=== PATIENT | female | born 1970 | race Caucasian/White ===

== ENCOUNTER 2017-12-06 13:20 | Inpatient (IN) | payer SELFPAY ==
[2017-12-06] VITALS (10 sets, daily range): BP systolic 154–202; BP diastolic 101–134; PULSE 70–104; RESP 16–18; TEMP 36.5–36.7; O2SAT 96–100; BMI 44.1; BMI 44.2
--- NOTE | 2017-12-06 14:02 | ECHOD_ITS ---
Reason For Study: CHF Procedure This was a 2D Doppler, Color Flow transthoracic echocardiogram. The study was technically difficult. Due to body habitus and severe headache. Exam performed portable in patient room. Dr. Schroeder was notified @ 3:35 pm. Left Ventricle Normal LV size. Moderate concentric left ventricular hypertrophy. The estimated ejection fraction is 15 %. Severe global left ventricular systolic dysfunction. Transmitral diastolic flow velocities suggest severe (stage 3) diastolic dysfunction. There is severe global hypokinesis of the left ventricle. Right Ventricle Normal RV size. Normal systolic function. Atria The left atrium is moderately enlarged. Normal right atrium. Mitral Valve Normal mitral valve. Tricuspid Valve Normal tricuspid valve. Moderate (2+) tricuspid valve insufficiency. Pulmonary artery systolic pressure is 56 mmHg. Moderate pulmonary hypertension. Aortic Valve Normal aortic valve. Trisinus/trileaflet aortic valve. Pulmonic Valve Normal pulmonic valve. Mild (1+) pulmonic valve insufficiency. Great Vessels Normal aortic root. The pulmonary artery is normal size. The inferior vena cava is dilated. Pericardium/Pleural No pericardial effusion. MMode/2D Measurements & Calculations LVIDd: 5.2 cm IVSd: 1.4 cm Ao root diam: 2.8 cm LVIDs: 4.8 cm LVPWd: 1.3 cm LA dimension: 5.0 cm RVDd: 3.3 cm FS: 8.5 % LAV(MOD-bp): 95.8 ml LA A4 area: 29.7 cm2 RA A4 area: 18.5 cm2 LAV(MOD-bp) Indexed: 46.3 ml/m2 LAV(MOD-sp2): 75.2 ml LAV(MOD-sp4): 111.1 ml Doppler Measurements & Calculations MV E max victoriano: 93.8 cm/sec Lat Peak E' Victoriano: 7.4 cm/sec Med Peak E' Victoriano: 2.6 cm/sec MV A max victoriano: 36.7 cm/sec E/E' lat: 12.7 E/E' med: 36.3 MV E/A: 2.6 Ao V2 max: 112.7 cm/sec LV V1 max: 78.9 cm/sec PA V2 max: 73.8 cm/sec Ao max P.1 mmHg LV V1 max P.5 mmHg TR max victoriano: 367.0 cm/sec TR max P.7 mmHg Interpretation Summary Normal LV size. Moderate concentric left ventricular hypertrophy. The estimated ejection fraction is 15 %. Severe global left ventricular systolic dysfunction. Transmitral diastolic flow velocities suggest severe (stage 3) diastolic dysfunction Moderate pulmonary hypertension. Ordering Physician: Eva Queen Performed By: Dilia Winters, ARELIS, RVT
--- NOTE | 2017-12-06 14:09 | PCM.HP.STD ---
Problem List (1) CHF (congestive heart failure) Status: Acute (2) Hypertension Status: Chronic History of Present Illness Date of Admission: 12/06/17 Chief Complaint: Shortness of breath and leg edema The patient is a 47 year old F who presented to the emergency room at [place] with progressive shortness of breath and leg swelling for 1 week. The patient has history of congestive heart failure diagnosed about 2 years ago but she does not follow up with any physician, he was supposed to be on Lasix but does not take this medication. In the emergency room the patient was noted to be saturating well above 97% on room air, her d-dimer was elevated and a CT angiogram of the chest was obtained that was negative for pulmonary embolism but revealed 9 mm millimeters solid right upper lobe lung nodule, bilateral mediastinal hilar and hilar adenopathy as well as small right pleural effusion and cardiomegaly. The patient was transferred to [facility] for further management. The patient reports no chest pain, palpitations or rapid heartbeat. Past Medical History Past Medical History (Chronic Problems): Chronic Problems Hypertension (Chronic) Smoking Status: Never smoker VTE Information - Inpt Only VTE Present on Admission: No VTE Pharm Prophylaxis ordered?: Yes Patient Problems: Active and Suspected Problems CHF (congestive heart failure) (Acute) - Physical Exam General: Alert, Oriented x3 HEENT: Atraumatic Oral: Moist Mucosa Neck: Supple Lungs: Clear to auscultation Cardiovascular: Regular rate, Normal S1, Normal S2 Abdomen: Bowel Sounds Present, Soft, Non Tender Extremities: Edema Neurological: Cranial nerves II-XII grossly intact, Motor Exam 5/5 strength throughout Psych/Mental Status: Normal Affect Vital Signs Temp Pulse Resp BP Pulse Ox 98.1 F 99 16 173/127 H 100 12/06/17 13:20 12/06/17 13:31 12/06/17 13:20 12/06/17 13:20 12/06/17 13:20 Oxygen Delivery Method Room Air Weight: 109.6 kg Body Mass Index (BMI) 44.1 Assessment/Plan Active and Suspected Problems CHF (congestive heart failure) (Acute) 1. Acute on chronic congestive heart failure ; given her ascites she could have right heart failure , we will obtain echocardiogram with left ventricular function as well as RVSP. She will be started on IV Lasix. [employer] Specialist will be consulted. 2. Essential Hypertension; we will place her on lisinopril and hydrochlorothiazide for now, when she is adequately diuresed she can be started on a beta-landy. 3. 9 mm solid right upper lung nodule, bilateral mediastinal and hilar adenopathy; we will consult pulmonary medicine. 4. Obesity weight loss recommended. 5. Ascites, Mild ; may be due to right heart failure, will continue on diuresis, workup as in #1 above. 6. Prophylaxis with Lovenox. Code Visit Inpatient E&M: 32862 Init Hosp L3
--- NOTE | 2017-12-06 14:42 | PCM.CONS.GEN ---
Reason for Consult Date of Consultation: 12/06/17 Reason for Consultation: Right upper lung nodule History of Present Illness: The patient is a 47 year old F with a past medical history of uncontrolled hypertension, arthritis, borderline diabetes, and anxiety/depression who presented to the ED as a direct admit from [facility] for increased shortness of breath and lower extremity edema with suspected CHF exacerbation. Patient reports she has been progressively short of breath over the last 1-2 weeks with increase in lower extremity edema despite elevation of her legs. She also complains of abdominal distention over the last couple of days. Patient reports she was diagnosed with CHF a few years ago at [facility], she was not admitted at that time but discharged with a couple of medications. She did fill these medications, however never really took any of them. She never followed up with cardiology as instructed. Patient reports her suddenly 4 years ago of a heart attack and she fell apart after that, she has been drinking daily for the last couple of years. She does smoke intermittently, 1-2 cigarettes once a month. The patient recently got evicted from her home and is currently living with her son and roommate. Chest CT obtained at [facility] secondary to elevated d-dimer, it was negative for PE but showed a solid-appearing 9 mm right upper lobe nodule, 3 mm right middle lobe nodule, and several right lower lobe nodules anteriorly. There was a small right pleural effusion with mild adjacent compressive atelectasis. Left lung was clear. There is also a number of mildly enlarged mediastinal and hilar lymph nodes bilaterally. Mild cardiomegaly. There was reflux of contrast into the IVC, possible right ventricular dysfunction. Also a small pericardial effusion. There is also an incidental finding of at least a small volume of ascites to the upper abdomen. EKG showed normal sinus rhythm with no evidence of ischemia. Blood pressures at [facility] were consistently elevated, as high as 228/146. Patient reports this is typical for her. She has never exhibited any hypoxia. She was treated with nitroglycerin paste, 20 mg IV Lasix, full dose aspirin, and IV labetalol without much improvement in her blood pressure. Initial troponin was 0.31. Pro BNP was 9080. White count was normal as well as hemoglobin. Platelet count 43. Rapid influenza negative. Patient transferred to [facility] for further evaluation and management. Pulmonology and cardiology have been consulted. Patient denies any previous abnormal imaging. She seems to be somewhat of a poor historian and downplays her symptoms. She denies any previous home oxygen use, hospitalizations, inhalers, or steroids. She denies any history of lung disease. Patient denies unexplained weight loss, hemoptysis, nocturia, or significant orthopnea. She does have a productive cough of martin/brown sputum for the last couple of weeks. No recent sick contacts. She denies any fever or chills, sore throat, no nausea, vomiting, or diarrhea. Denies any dizziness, syncope, or chest discomfort. She does cough with deep inspiration. States she has allergies as she sneezes when she is around animals. Patient admits she does not take care of herself and having significantly high blood pressures is very common for her. She has a headache. She drinks approximately a 12 pack of beer almost daily. Her last drink was 2 days ago. 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 Denies: Difficulty Swallowing, Head Aches, Nasal bleeding, Nasal Congestion, Sinus Congestion, Sinus Drainage, Sore Throat Cardiovascular: Reports: Edema, Orthopnea - if lies on back. sleeps w/2 pillows on side. Denies: Chest Pain, Chest Pressure, Chest Tightness, Heaviness, Light Headedness, Palpitations, Paroxysmal Noc. Dyspnea, Syncope Respiratory: Reports: Cough, Shortness of breath upon exertion, Sputum production. Denies: Hemoptysis, Shortness of breath at rest, Wheezing Gastrointestinal: Reports: - - bloated. Denies: Abdominal Pain, Constipation, Diarrhea, Dyspepsia, Hematemesis, Hematochezia, Nausea, Melena, Vomiting Genitourinary: Reports: Frequency - with diuretic. Denies: Dysuria, Hematuria, Nocturia, Retention Gynecological: Denies: Breast symptoms Musculoskeletal: Denies: Neck Pain, Shoulder Pain Skin: Denies: Rash, Wounds Neurological: Reports: Difficulty swallowing - just pills. Denies: Balance problems, Change in Speech, Confusion, Focal weakness, Numbness, Tingling, Tremor Psychiatric: Reports: Anxiety, Depression. Denies: Suicidal Ideations Endocrine: Denies: Change in Body Habitus, Polydipsia, Polyuria, Hx of Thyroiditis Hematologic/ Lymphatic: Denies: Adenopathy, Anemia, Easy Bruising, Easy Bleeding, Hx of blood clot Patient Problems: Active and Suspected Problems CHF (congestive heart failure) (Acute) Subjective: Patient was seen and examined. She is not in any acute distress. She denies any current shortness of breath, except with exertion. She is maintaining appropriate saturations on room air. She is asking for something to eat. Objective: [facility] testing: CT chest negative for PE but showed a solid-appearing 9 mm right upper lobe nodule, 3 mm right middle lobe nodule, and several right lower lobe nodules anteriorly. There was a small right pleural effusion with mild adjacent compressive atelectasis. Left lung was clear. There is also a number of mildly enlarged mediastinal and hilar lymph nodes bilaterally. Mild cardiomegaly. There was reflux of contrast into the IVC, possible right ventricular dysfunction. Also a small pericardial effusion. There is also an incidental finding of at least a small volume of ascites to the upper abdomen. EKG showed normal sinus rhythm with no evidence of ischemia. Rapid influenza negative. - Physical Exam General: Alert, Oriented x3, Cooperative, No apparent distress, Well developed, Well nourished, - - obese HEENT: Atraumatic Oral: Moist Mucosa, No Gingival or Mucosal Lesions/ Ulcerations Neck: Supple, No Nodes, Trachea Midline Lungs: - - Diminished throughout with no appreciable rhonchi, wheezing, or rales. No accessory muscle use or tachypnea. Symmetrical expansion, no dullness to percussion Cardiovascular: Regular rate, Regular Rhythm, Normal S1, Normal S2, No murmurs, No rub noted, No Gallop Abdomen: Bowel Sounds Present, Soft, Non Tender, Non-Distended, No Hepato-splenomegaly, Obese Extremities: No clubbing, No cyanosis, No Calf Tenderness, Edema Skin: No rashes, No breakdown Musculoskeletal: No Tenderness to Palpation of Joints or Extremities Lymphatic: No Cervical, Supraclavicular, or Inguinal Adenopathy Neurological: Cranial nerves II-XII grossly intact, Neuro grossly intact, Motor Exam 5/5 strength throughout Psych/Mental Status: Alert and oriented to time, place, person, mood and affect Vital Signs Temp Pulse Resp BP Pulse Ox 98.1 F 99 16 173/127 H 100 12/06/17 13:20 12/06/17 13:31 12/06/17 13:20 12/06/17 13:20 12/06/17 13:20 Oxygen Delivery Method Room Air Weight: 241 lb 10.026 oz Body Mass Index (BMI) 44.1 Assessment/Plan Active and Suspected Problems CHF (congestive heart failure) (Acute) RECOMMENDATIONS 1. Oxygen supplementation to keep saturations 90% or above 2. Encourage incentive spirometer 3. Increase activity as tolerated, up to chair 4. As needed albuterol aerosols 5. Await echocardiogram 6. Continue with IV diuresis 7. Consider addition of second antihypertensive agent 8. Routine CIWA assessment 9. Ambulatory pulse ox prior to discharge 10. Follow-up CT in 3 months for lung nodules, follow-up in the pulmonary clinic for results 11. Case management referral for assistance with medications/healthcare IMPRESSIONS 1. Right-mid lung nodules No prior imaging. Right upper lobe nodules 9 mm, right middle lobe 3 mm, several smaller in the right anterior lower lobe. Also bilateral mediastinal and hilar adenopathy. No indication for bronchoscopy at this time. Patient can follow-up in the pulmonary clinic, should have repeat CT in 3 months to reassess lung nodules. Patient does have some risk factors that would be concerning for malignancy, has smoked off and on over the past couple of years. She does not routinely follow up with the physician. Not up-to-date on screenings such as mammogram. No family history of colon or breast cancer. 2. Shortness of breath Suspect CHF exacerbation, possibly secondary to ischemia or uncontrolled hypertension. No chest pain. Initial troponin at [facility] was 0.30. No prior echocardiograms to her knowledge, states that if she had one done it would have been at [facility]. Patient was diagnosed with CHF a couple of years ago in the ER, was given prescriptions and told to follow-up with cardiology, which she failed to do. States she has not cared much about her health since her 4 years ago. She is unemployed and does not have insurance, which is also contributing factor. Await serial cardiac enzymes and echocardiogram. 3. Uncontrolled hypertension Patient's blood pressure consistently and significantly elevated systolic in the 170s-220s and diastolic 90-150s. Noncompliant with prescription secondary to depression and financial issues. She recently got evicted from her home and has been bouncing from house to house with family and friends. 4. Anxiety/depression/morbid obesity/alcohol abuse/tobacco abuse Complicates care, management, recovery, and prognosis. Lisinopril started by hospitalist, would consider additional agent with significant hypertension. Hopefully, with diuresis her blood pressure will also improve. As needed IV labetalol was ordered. Encouraged smoking cessation. Monitor for alcohol withdrawal, CIWA ordered. Patient denies any previous withdrawal when she goes without alcohol. Thank you for the opportunity to participate in this patient's care, please do not hesitate contact us with any further questions or concerns. This note was generated with eeden dictation software. It may contain incorrect words, spelling, and punctuation that were not noted in checking the note before signing.
--- NOTE | 2017-12-06 14:53 | CON.PCM_ITS ---
Reason for Consult Date of Consultation: 12/06/17 Reason for Consultation: Right upper lung nodule History of Present Illness: The patient is a 47 year old F with a past medical history of uncontrolled hypertension, arthritis, borderline diabetes, and anxiety/depression who presented to the ED as a direct admit from [facility] for increased shortness of breath and lower extremity edema with suspected CHF exacerbation. Patient reports she has been progressively short of breath over the last 1-2 weeks with increase in lower extremity edema despite elevation of her legs. She also complains of abdominal distention over the last couple of days. Patient reports she was diagnosed with CHF a few years ago at [facility], she was not admitted at that time but discharged with a couple of medications. She did fill these medications, however never really took any of them. She never followed up with cardiology as instructed. Patient reports her suddenly 4 years ago of a heart attack and she fell apart after that, she has been drinking daily for the last couple of years. She does smoke intermittently, 1-2 cigarettes once a month. The patient recently got evicted from her home and is currently living with her son and roommate. Chest CT obtained at [facility] secondary to elevated d-dimer, it was negative for PE but showed a solid-appearing 9 mm right upper lobe nodule, 3 mm right middle lobe nodule, and several right lower lobe nodules anteriorly. There was a small right pleural effusion with mild adjacent compressive atelectasis. Left lung was clear. There is also a number of mildly enlarged mediastinal and hilar lymph nodes bilaterally. Mild cardiomegaly. There was reflux of contrast into the IVC, possible right ventricular dysfunction. Also a small pericardial effusion. There is also an incidental finding of at least a small volume of ascites to the upper abdomen. EKG showed normal sinus rhythm with no evidence of ischemia. Blood pressures at [facility] were consistently elevated, as high as 228/146. Patient reports this is typical for her. She has never exhibited any hypoxia. She was treated with nitroglycerin paste, 20 mg IV Lasix , full dose aspirin, and IV labetalol without much improvement in her blood pressure. Initial troponin was 0.31. Pro BNP was 9080. White count was normal as well as hemoglobin. Platelet count 43. Rapid influenza negative. Patient transferred to [facility] for further evaluation and management. Pulmonology and cardiology have been consulted. Patient denies any previous abnormal imaging. She seems to be somewhat of a poor historian and downplays her symptoms. She denies any previous home oxygen use, hospitalizations, inhalers, or steroids. She denies any history of lung disease. Patient denies unexplained weight loss, hemoptysis, nocturia, or significant orthopnea. She does have a productive cough of martin/brown sputum for the last couple of weeks. No recent sick contacts. She denies any fever or chills, sore throat, no nausea, vomiting, or diarrhea. Denies any dizziness , syncope, or chest discomfort. She does cough with deep inspiration. States she has allergies as she sneezes when she is around animals. Patient admits she does not take care of herself and having significantly high blood pressures is very common for her. She has a headache. She drinks approximately a 12 pack of beer almost daily. Her last drink was 2 days ago. 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 Denies: Difficulty Swallowing, Head Aches, Nasal bleeding, Nasal Congestion, Sinus Congestion, Sinus Drainage, Sore Throat Cardiovascular: Reports: Edema, Orthopnea - if lies on back. sleeps w/2 pillows on side. Denies: Chest Pain, Chest Pressure, Chest Tightness, Heaviness, Light Headedness, Palpitations, Paroxysmal Noc. Dyspnea, Syncope Respiratory: Reports: Cough, Shortness of breath upon exertion, Sputum production. Denies: Hemoptysis, Shortness of breath at rest, Wheezing Gastrointestinal: Reports: - - bloated. Denies: Abdominal Pain, Constipation , Diarrhea, Dyspepsia, Hematemesis, Hematochezia, Nausea, Melena, Vomiting Genitourinary: Reports: Frequency - with diuretic. Denies: Dysuria, Hematuria, Nocturia, Retention Gynecological: Denies: Breast symptoms Musculoskeletal: Denies: Neck Pain, Shoulder Pain Skin: Denies: Rash, Wounds Neurological: Reports: Difficulty swallowing - just pills. Denies: Balance problems, Change in Speech, Confusion, Focal weakness, Numbness, Tingling, Tremor Psychiatric: Reports: Anxiety, Depression. Denies: Suicidal Ideations Endocrine: Denies: Change in Body Habitus, Polydipsia, Polyuria, Hx of Thyroiditis Hematologic/ Lymphatic: Denies: Adenopathy, Anemia, Easy Bruising, Easy Bleeding , Hx of blood clot Patient Problems: Active and Suspected Problems CHF (congestive heart failure) (Acute) Subjective: Patient was seen and examined. She is not in any acute distress. She denies any current shortness of breath, except with exertion. She is maintaining appropriate saturations on room air. She is asking for something to eat. Objective: [facility] testing: CT chest negative for PE but showed a solid-appearing 9 mm right upper lobe nodule, 3 mm right middle lobe nodule, and several right lower lobe nodules anteriorly. There was a small right pleural effusion with mild adjacent compressive atelectasis. Left lung was clear. There is also a number of mildly enlarged mediastinal and hilar lymph nodes bilaterally. Mild cardiomegaly. There was reflux of contrast into the IVC, possible right ventricular dysfunction. Also a small pericardial effusion. There is also an incidental finding of at least a small volume of ascites to the upper abdomen. EKG showed normal sinus rhythm with no evidence of ischemia. Rapid influenza negative. - Physical Exam General: Alert, Oriented x3, Cooperative, No apparent distress, Well developed, Well nourished, - - obese HEENT: Atraumatic Oral: Moist Mucosa, No Gingival or Mucosal Lesions/ Ulcerations Neck: Supple, No Nodes, Trachea Midline Lungs: - - Diminished throughout with no appreciable rhonchi, wheezing, or rales. No accessory muscle use or tachypnea. Symmetrical expansion, no dullness to percussion Cardiovascular: Regular rate, Regular Rhythm, Normal S1, Normal S2, No murmurs, No rub noted, No Gallop Abdomen: Bowel Sounds Present, Soft, Non Tender, Non-Distended, No Hepato- splenomegaly, Obese Extremities: No clubbing, No cyanosis, No Calf Tenderness, Edema Skin: No rashes, No breakdown Musculoskeletal: No Tenderness to Palpation of Joints or Extremities Lymphatic: No Cervical, Supraclavicular, or Inguinal Adenopathy Neurological: Cranial nerves II-XII grossly intact, Neuro grossly intact, Motor Exam 5/5 strength throughout Psych/Mental Status: Alert and oriented to time, place, person, mood and affect Vital Signs Temp Pulse Resp BP Pulse Ox 98.1 F 99 16 173/127 H 100 12/06/17 13:20 12/06/17 13:31 12/06/17 13:20 12/06/17 13:20 12/06/17 13:20 Oxygen Delivery Method Room Air Weight: 241 lb 10.026 oz Body Mass Index (BMI) 44.1 Assessment/Plan Active and Suspected Problems CHF (congestive heart failure) (Acute) RECOMMENDATIONS 1. Oxygen supplementation to keep saturations 90% or above 2. Encourage incentive spirometer 3. Increase activity as tolerated, up to chair 4. As needed albuterol aerosols 5. Await echocardiogram 6. Continue with IV diuresis 7. Consider addition of second antihypertensive agent 8. Routine CIWA assessment 9. Ambulatory pulse ox prior to discharge 10. Follow-up CT in 3 months for lung nodules, follow-up in the pulmonary clinic for results 11. Case management referral for assistance with medications/healthcare IMPRESSIONS 1. Right-mid lung nodules No prior imaging. Right upper lobe nodules 9 mm, right middle lobe 3 mm, several smaller in the right anterior lower lobe. Also bilateral mediastinal and hilar adenopathy. No indication for bronchoscopy at this time. Patient can follow-up in the pulmonary clinic, should have repeat CT in 3 months to reassess lung nodules. Patient does have some risk factors that would be concerning for malignancy, has smoked off and on over the past couple of years. She does not routinely follow up with the physician. Not up-to-date on screenings such as mammogram. No family history of colon or breast cancer. 2. Shortness of breath Suspect CHF exacerbation, possibly secondary to ischemia or uncontrolled hypertension. No chest pain. Initial troponin at [facility] was 0.30. No prior echocardiograms to her knowledge, states that if she had one done it would have been at [facility]. Patient was diagnosed with CHF a couple of years ago in the ER, was given prescriptions and told to follow-up with cardiology, which she failed to do. States she has not cared much about her health since her 4 years ago. She is unemployed and does not have insurance, which is also contributing factor. Await serial cardiac enzymes and echocardiogram. 3. Uncontrolled hypertension Patient's blood pressure consistently and significantly elevated systolic in the 170s-220s and diastolic 90-150s. Noncompliant with prescription secondary to depression and financial issues. She recently got evicted from her home and has been bouncing from house to house with family and friends. 4. Anxiety/depression/morbid obesity/alcohol abuse/tobacco abuse Complicates care, management, recovery, and prognosis. Lisinopril started by hospitalist, would consider additional agent with significant hypertension. Hopefully, with diuresis her blood pressure will also improve. As needed IV labetalol was ordered. Encouraged smoking cessation. Monitor for alcohol withdrawal, CIWA ordered. Patient denies any previous withdrawal when she goes without alcohol. Thank you for the opportunity to participate in this patient's care, please do not hesitate contact us with any further questions or concerns. This note was generated with [employer] dictation software. It may contain incorrect words, spelling, and punctuation that were not noted in checking the note before signing.
[2017-12-06 15:35] LABS: Bedside Glucose 118 mg/dL (70-110)
[2017-12-06 15:45] LABS: Thyroid Stim Hormone (TSH) 2.69 uIU/mL (0.358-3.74)
[2017-12-06] MEDS: Labetalol 100 MG/20 ML Vial 20 MG IV (17:08)
[2017-12-06] MEDS: Carvedilol 12.5 MG Tablet PO (20:04)
[2017-12-06] MEDS: Furosemide 40 MG/4 ML Vial IV (21:24)
[2017-12-07] VITALS (12 sets, daily range): BP systolic 120–166; BP diastolic 74–106; PULSE 65–151; RESP 18; TEMP 36.5–36.9; O2SAT 96–100
[2017-12-07] MEDS: Labetalol 100 MG/20 ML Vial 20 MG IV (02:41)
[2017-12-07 04:58] LABS: Absolute Lymphocyte Count 1.08 X10^3/ul (0.83-4.51); Absolute Neutrophil Count 3.2 X10^3/uL (2.0-7.7); Basophil# 0.02 X10^3/uL; Basophil% 0.4 % (0-1); Eosinophil# 0.14 X10^3/uL; Eosinophils% 2.8 % (0-5); Hematocrit 36.5 % (37-47); Hemoglobin 11.1 g/dl (12.0-15.0); Lymphocyte # 1.08 X10^3/ul (4.0); Lymphocyte % 21.9 % (19-41); Mean Corp Hgb Conc 30.4 g/gl (32-36); Mean Corpuscular Hgb 23.6 pg (27.0-32.0); Mean Corpuscular Volume 77.5 fL (81-99); Mean Platelet Vol. 9.3 fl (6.2-12.0); Monocyte# 0.48 X10^3/uL; Monocyte% 9.7 % (0-10); Platelet Count 410 K/mm3 (150-450); RBC Distribution Width SD 47.1 fl (35.1-43.9); Red Blood Count 4.71 M/mm3 (4.2-5.4); White Blood Count 4.9 K/mm3 (4.4-11.0)
[2017-12-07 04:59] LABS: POSITIVE COUNT NO; POSITIVE DIFFERENTIAL NO; POSITIVE MORPHOLOGY NO
[2017-12-07 05:09] LABS: Anion Gap 8 (5-15); BUN 12 mg/dL (7-18); BUN/Creat Ratio 12.5 RATIO (10-20); Chloride 99 mmol/L (98-107); Creatinine, Serum 0.96 mg/dL (0.55-1.02); EST Glomerular Filtration Rate 66 mL/min (>60); Est Glom Filt Rate - Afr Amer 80 mL/min (>60); Glucose 124 mg/dL (74-106); Potassium 4.2 mmol/L (3.5-5.1); Sodium Level 135 mmol/L (136-145)
[2017-12-07] MEDS: Furosemide 40 MG/4 ML Vial IV ×3 (05:26→22:25)
[2017-12-07] MEDS: Enoxaparin 40 MG/0.4 ML Syringe SC (05:26)
--- NOTE | 2017-12-07 08:01 | PN_ITS ---
Patient Problems: Active and Suspected Problems CHF (congestive heart failure) (Acute) Subjective: Patient did well overnight. No acute issues were reported. Patient feels subjectively improved compared to yesterday, but is still reporting a headache right behind my eyeballs. Patient denies any photosensitive nature. No nausea or vomiting is been reported. No focal neurologic deficits reported. Patient' s blood pressure is much improved compared to yesterday. Patient remains on room air. Patient did state that she does not tend to use her blood pressure medications because I have significant problems with swallowing pills. - Physical Exam General: Alert, Oriented x3, Cooperative, No apparent distress, - - Morbidly obese. Speaking in full sentences. HEENT: Atraumatic, PERRLA, EOMI, Normocephalic, - - No scleral icterus or injection noted. Oral: Moist Mucosa, No Gingival or Mucosal Lesions/ Ulcerations Neck: Supple, No JVD, No Nodes, Trachea Midline Lungs: No rhonchi, No wheeze, No rales, Diminished - Right base, - - No dullness to percussion Cardiovascular: Regular rate, Regular Rhythm, Normal S1, Normal S2, No murmurs, No rub noted, No Gallop Abdomen: Bowel Sounds Present, Soft, Non Tender, Non-Distended, Obese Extremities: No clubbing, No cyanosis, Capillary Refill Less than 3 Seconds, Edema Skin: No rashes, No breakdown Musculoskeletal: No Tenderness to Palpation of Joints or Extremities Lymphatic: No Cervical, Supraclavicular, or Inguinal Adenopathy Neurological: Cranial nerves II-XII grossly intact, Neuro grossly intact, Motor Exam 5/5 strength throughout Psych/Mental Status: Alert and oriented to time, place, person, mood and affect Vital Signs Temp Pulse Resp BP Pulse Ox 36.7 C 80 18 137/88 H 96 12/07/17 05:34 12/07/17 05:34 12/07/17 05:34 12/07/17 05:34 12/07/17 05:34 Oxygen Delivery Method Room Air Weight: 108.7 kg Body Mass Index (BMI) 44.1 Intake and Output for Last 24 Hours 12/05/17 12/06/17 12/07/17 23:59 23:59 23:59 Intake Total 480 / 480 240 / 240 Balance 480 / 480 240 / 240 Laboratory Tests Past 24 Hrs 12/06/17 12/06/17 12/06/17 15:12 18:14 22:45 WBC RBC Hgb Hct MCV MCH MCHC RDW RDW Differential Plt Count MPV Immature Gran % (Auto) Neut % (Auto) Lymph % (Auto) [place] % (Auto) Eos % (Auto) Baso % (Auto) Absolute Neuts (auto) Absolute Lymphs (auto) Total Counted Sodium Potassium Chloride Carbon Dioxide Anion Gap BUN Creatinine Estim Creat Clear Calc Est GFR (MDRD) Af Amer Est GFR (MDRD) Non-Af BUN/Creatinine Ratio Glucose Calcium Troponin I 0.25 H 0.22 H 0.20 H TSH 2.69 12/07/17 12/07/17 12/07/17 04:28 04:28 04:28 WBC 4.9 RBC 4.71 Hgb 11.1 L Hct 36.5 L MCV 77.5 L MCH 23.6 L MCHC 30.4 L RDW 17.0 H RDW Differential 47.1 H Plt Count 410 MPV 9.3 Immature Gran % (Auto) 0.200 Neut % (Auto) 65.0 Lymph % (Auto) 21.9 [place] % (Auto) 9.7 Eos % (Auto) 2.8 Baso % (Auto) 0.4 Absolute Neuts (auto) 3.2 Absolute Lymphs (auto) 1.08 Total Counted Not Reportable Sodium 135 L Potassium 4.2 Chloride 99 Carbon Dioxide 28.0 Anion Gap 8 BUN 12 Creatinine 0.96 Estim Creat Clear Calc 57.30 Est GFR (MDRD) Af Amer 80 Est GFR (MDRD) Non-Af 66 BUN/Creatinine Ratio 12.5 Glucose 124 H Calcium 8.0 L Troponin I 0.18 H TSH POC Glucose 12/06/17 15:31 POC Glucose 118 H Medical Necessity - Tobacco Use Smoking Status: Current some day smoker Tobacco Use: Cigarettes Assessment/Plan Active and Suspected Problems CHF (congestive heart failure) (Acute) RECOMMENDATIONS 1. As needed aerosols are likely sufficient 2. Encourage incentive spirometer and activity as tolerated 3. Increase activity as tolerated, up to chair 4. Continue with IV diuresis as tolerated 5. Routine CIWA assessment 6. Ambulatory pulse ox prior to discharge 7. Follow-up CT in 3 months for lung nodules, follow-up in the pulmonary clinic for results 8. Case management referral for assistance with medications/healthcare IMPRESSIONS 1. Right-mid lung nodules Patient with multiple right-sided lung nodules of unclear significance. Patient does have a history of smoking in the past and is not very clear on how much she actually smokes currently. Patient likely would be high risk for lung malignancy. Plan to repeat CT scan in 3 months to assess for growth. Will need monitored for 2 years. Patient has not had any screening mammograms, so this should also be completed. 2. Shortness of breath Patient reports improvement in acne on exertion. Patient with elevated troponin and blood pressure on presentation. Clinical suspicion for congestive heart failure leading to shortness of breath on exertion. Patient does have a long smoking history. Outpatient complete pulmonary function test. Would not recommend thoracentesis at this time as this would likely not significantly increase exercise tolerance and patient has no associated infiltrate constitutional symptoms to suggest a exudative process. 3. Hypertensive urgency Since blood pressure is much improved now compared to presentation. Patient does have a headache, but no focal neurologic deficits to suggest central ischemia. Patient did state that she is known to have significant difficulty with swallowing pills and may be better if they can be crushed or small in size. This was made known to the nursing staff. 4. Anxiety/depression/morbid obesity/alcohol abuse/tobacco abuse Complicates care, management, recovery, and prognosis. Lisinopril started by hospitalist, would consider additional agent with significant hypertension. Hopefully, with diuresis her blood pressure will also improve. As needed IV labetalol was ordered. Encouraged smoking cessation. Monitor for alcohol withdrawal, CIWA ordered. Patient denies any previous withdrawal when she goes without alcohol. Code Visit Inpatient E&M: 92814 Subs Hosp L2
--- NOTE | 2017-12-07 09:44 | CON.PCM_ITS ---
Reason for Consult Date of Consultation: 12/07/17 Reason for Consultation: Shortness of breath. History of Present Illness: The patient is a 47 year old F with a previous cardiac history of hypertension as well as probable congestive heart failure who has not had appropriate medical follow-up. She presented to [facility] emergency room yesterday with shortness of breath and was subsequently transferred to [place]. She was evaluated and noted to be in possible congestive heart failure she was also noted to have a 9 mm lung nodule which was investigated with a CT scan. She was admitted diuresed with improvement in her symptoms an echocardiogram was performed which demonstrated severe reduction in her left ventricular ejection fraction estimated at 15%. She was also noted to have an elevated troponin which has been fairly flat. She denies any chest pain she is not had any palpitations she has complained of a headache he has also had mild pedal edema. Currently she says that she is doing much better. 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 Denies: Chest Discomfort, Orthopnea, PND, Palpitations, Lightheadedness, Dizziness, Near Syncope, Syncope Respiratory: Reports: Shortness of Breath. Denies: Cough, Sputum Production, Hemoptysis Gastrointestinal: Denies: Hematemesis, Hematochezia, Melena Genitourinary: Denies: Dysuria, Hematuria Skin: Denies: Rash Psychiatric: Reports: Anxiety Subjectve: Pleasant lady in no apparent distress. Objective: Vital Signs Temp Pulse Resp BP Pulse Ox 98.0 F 84 18 137/88 H 96 12/07/17 05:34 12/07/17 06:54 12/07/17 05:34 12/07/17 05:34 12/07/17 05:34 Oxygen Delivery Method Room Air Weight: 239 lb 10.279 oz Body Mass Index (BMI) 44.1 Intake and Output for Last 24 Hours 12/05/17 12/06/17 12/07/17 23:59 23:59 23:59 Intake Total 480 / 480 240 / 240 Balance 480 / 480 240 / 240 General: Awake, Alert, Oriented x 3, No Acute Distress HEENT: PERRL, EOMI, Sclera Non Icteric Neck: Supple, Good ROM, No Lymph Node Enlargement Lungs: Rales - Aron Bases Cardiovascular: Regular Rhythm, Normal S1, Normal S2, No Murmurs, No Rubs, No Gallops Vascular: No Carotid Bruits, Normal Femoral Pulses, Normal Radial Pulses, Normal Dorsalis Pedal Pulse, Normal Posterior Tibial Pulses Abdomen: Bowel Sounds Present, Soft, Non Tender, No HSM, No Organomegaly Extremities: No Cyanosis, No Clubbing, Trace RLE Edema, Trace LLE Edema Neurological: No Focal Motor or Sensory Deficit 12/06/17 15:12: Troponin I 0.25 H 12/06/17 18:14: Troponin I 0.22 H 12/06/17 22:45: Troponin I 0.20 H 12/07/17 04:28: Sodium 135 L, Potassium 4.2, Chloride 99, Carbon Dioxide 28.0, Anion Gap 8, BUN 12, Creatinine 0.96, Est GFR (MDRD) Af Amer 80, Est GFR (MDRD) Non-Af 66, BUN/Creatinine Ratio 12.5, Glucose 124 H, Calcium 8.0 L 12/07/17 04:28: WBC 4.9, RBC 4.71, Hgb 11.1 L, Hct 36.5 L, MCV 77.5 L, MCH 23.6 L, MCHC 30.4 L, RDW 17.0 H, RDW Differential 47.1 H, Plt Count 410, MPV 9.3, Immature Gran % (Auto) 0.200, Neut % (Auto) 65.0, Lymph % (Auto) 21.9, [place] % ( Auto) 9.7, Eos % (Auto) 2.8, Baso % (Auto) 0.4, Absolute Neuts (auto) 3.2, Total Counted Not Reportable 12/07/17 04:28: Troponin I 0.18 H Rhythm: EKG: Normal sinus rhythm ECHO: Severe global reduction in left ventricular ejection fraction Assessment/Plan 1. Congestive heart failure-acute systolic The patient presents with significant shortness of breath which has been progressive and has laboratory findings and x-ray findings consistent with the above. An echocardiogram demonstrated severe left ventricular systolic dysfunction. The etiology of the above is unclear at this time but is likely related to hypertension as well as alcohol use. I do not think this is coronary in origin despite the mild elevation in the troponins. The recommendation at this time would be to restart her EFRAIN inhibitor as well as the beta-landy and diuresis with intravenous Lasix for 48 hours and then subsequently oral Lasix. Spironolactone may also need to be added. At some point Entresto may be substituted for the lisinopril. A cardiac catheterization should be performed to exclude obstructive coronary disease. I have discussed the above with her and she does understand. Salt restriction and weight reduction and smoking cessation have all been emphasized. 2. Severe hypertension Patient presents with uncontrolled hypertension. She has been receiving intravenous labetalol. My recommendation will be to increase her Coreg further this morning and continue her EFRAIN inhibitor. Her blood pressure appears to have improved better. We will continue to monitor and see whether she needs any additional agents. 3. Abnormal cardiac enzymes The patient has mildly abnormal cardiac enzymes which are likely secondary to demand ischemia. She will undergo a cardiac catheterization early next week for further clarification and elucidation of the above. 4. Obesity The above may be contributing to some of her shortness of breath as well. Diet and exercise would need to be instituted after she has been appropriately worked up. Thank you for allowing me to participate in the care of your patient. Please don't hesitate to call if any issues arise
[2017-12-07] MEDS: Carvedilol 25 MG Tablet PO ×2 (09:53→22:25)
[2017-12-07] MEDS: Lisinopril 40 MG Tablet PO (09:53)
--- NOTE | 2017-12-07 11:05 | PCM.PN.HOSP ---
Patient Problems: Active and Suspected Problems CHF (congestive heart failure) (Acute) Vitals/I&O's: Vital Signs Temp Pulse Resp BP Pulse Ox 98.2 F 81 18 166/93 H 100 12/07/17 09:50 12/07/17 09:50 12/07/17 09:50 12/07/17 09:50 12/07/17 09:50 Oxygen Delivery Method Room Air Weight: 108.7 kg Body Mass Index (BMI) 44.1 Intake and Output for Last 24 Hours 12/05/17 12/06/17 12/07/17 23:59 23:59 23:59 Intake Total 480 / 480 240 / 240 Balance 480 / 480 240 / 240 Laboratory Results 12/06/17 15:12: Troponin I 0.25 H, TSH 2.69 12/06/17 15:31: POC Glucose 118 H 12/06/17 18:14: Troponin I 0.22 H 12/06/17 22:45: Troponin I 0.20 H 12/07/17 04:28: Sodium 135 L, Potassium 4.2, Chloride 99, Carbon Dioxide 28.0, Anion Gap 8, BUN 12, Creatinine 0.96, Estim Creat Clear Calc 57.30, Est GFR (MDRD) Af Amer 80, Est GFR (MDRD) Non-Af 66, BUN/Creatinine Ratio 12.5, Glucose 124 H, Calcium 8.0 L 12/07/17 04:28: WBC 4.9, RBC 4.71, Hgb 11.1 L, Hct 36.5 L, MCV 77.5 L, MCH 23.6 L, MCHC 30.4 L, RDW 17.0 H, RDW Differential 47.1 H, Plt Count 410, MPV 9.3, Immature Gran % (Auto) 0.200, Neut % (Auto) 65.0, Lymph % (Auto) 21.9, [place] % (Auto) 9.7, Eos % (Auto) 2.8, Baso % (Auto) 0.4, Absolute Neuts (auto) 3.2, Absolute Lymphs (auto) 1.08, Total Counted Not Reportable 12/07/17 04:28: Troponin I 0.18 H Current Medications Carvedilol (Coreg) 25 mg PO BID [facility] Last Admin: 12/07/17 09:53 Dose: 25 mg Enoxaparin Sodium (Lovenox) 40 mg SC DAILY@0600 [facility] Last Admin: 12/07/17 05:26 Dose: 40 mg Furosemide (Lasix) 40 mg IV Q8 [facility] Last Admin: 12/07/17 05:26 Dose: 40 mg Labetalol HCl (Trandate) 20 mg IV Q4H PRN PRN PRN Reason: BLOOD PRESSURE Last Admin: 12/07/17 02:41 Dose: 20 mg Lisinopril (Zestril) 40 mg PO DAILY [facility] Last Admin: 12/07/17 09:53 Dose: 40 mg Magnesium Hydroxide (Milk Of Magnesia) 30 ml PO DAILY PRN PRN Reason: Constipation Medical Necessity - Tobacco Use Smoking Status: Current some day smoker Tobacco Use: Cigarettes Assessment/Plan Active and Suspected Problems CHF (congestive heart failure) (Acute)
--- NOTE | 2017-12-07 11:11 | CASEMGMT ---
SOCIAL WORK: Referral received from tobacco weigher this morning due to patient self-pay status. Referral also received from RN taking care of patient due to patient's alcohol use and living situation. Patient admitted with CHF and HTN. Met with patient in her room; introduced self and SW role at [facility]. Patient laying in bed and kept eyes closed during entire interaction with this SW. She was guarded with information. Patient reports to being evicted by her slum landlord approximately 2 weeks ago and she and her 16 year old son have reportedly been staying with a friend in [facility]. Son reportedly continues to attend school in [place] where they had previously resided. Patient's other children are ages 22 and 20; her son is reportedly staying with a sister during patient hospitalization. Patient states that she will be returning to friend's home upon discharge. She denies having any concerns about current living arrangements or future living arrangements. Patient reportedly receives Social Security income however was not willing to state if this is from disability or another source. She is not employed. She states that she has a car and that she does drive. Denies any problems with reading or writing. Patient states that she does not have a primary care physician and does not know when the last time she saw a doctor was. She is evasive about any current medications or compliance issues. Patient does admit to drinking 6 to 12 beers daily since the age of 21. She denies that this is a problem and reports that she can quit if she wants to. She does state that she is not interested in quitting and that she is not interested in any information on [facility] [employer] or other counseling resources. She denies history of depression or current feelings of depression however affect appears flat at this time. Patient does not indicate any motivation or interest in making any lifestyle changes at this time. SW advised patient that there are many community resources available and also educated to option of Medicaid application for self and son. Patient did not express interest in information however did agree to this SW providing her with the information. SW provided patient with the following: a Medicaid application with contact information for [place] [facility]; community resource listings for [facility] including Rx and free clinic information; [facility] Financial Assistance application; listing of local PCPs and contact information and services offered by [facility]. No further issues identified. SADE Mortensen
--- NOTE | 2017-12-07 14:43 | PCM.PN.HOSP ---
Patient Problems: Active and Suspected Problems CHF (congestive heart failure) (Acute) Subjective: CC: Shortness of breath Objective: This is a 47-year-old female who presented with shortness of breath and leg edema, she is found to have acute congestive heart failure. Her echocardiogram reveals an ejection fraction of about 15%. Shee reports improvement with IV Lasix. Vitals/I&O's: Vital Signs Temp Pulse Resp BP Pulse Ox 98.2 F 77 18 166/93 H 100 12/07/17 09:50 12/07/17 10:54 12/07/17 09:50 12/07/17 09:50 12/07/17 09:50 Oxygen Delivery Method Room Air Weight: 108.7 kg Body Mass Index (BMI) 44.1 Intake and Output for Last 24 Hours 12/05/17 12/06/17 12/07/17 23:59 23:59 23:59 Intake Total 480 / 480 720 / 720 Balance 480 / 480 720 / 720 General: Alert, Oriented x3 HEENT: Atraumatic Oral: Moist Mucosa Neck: Supple, No JVD Lungs: Clear to auscultation Cardiovascular: Normal S1, Normal S2 Abdomen: Bowel Sounds Present, Soft Extremities: Edema Neurological: Cranial nerves II-XII grossly intact, Motor Exam 5/5 strength throughout Laboratory Results 12/06/17 15:12: Troponin I 0.25 H, TSH 2.69 12/06/17 15:31: POC Glucose 118 H 12/06/17 18:14: Troponin I 0.22 H 12/06/17 22:45: Troponin I 0.20 H 12/07/17 04:28: Sodium 135 L, Potassium 4.2, Chloride 99, Carbon Dioxide 28.0, Anion Gap 8, BUN 12, Creatinine 0.96, Estim Creat Clear Calc 57.30, Est GFR (MDRD) Af Amer 80, Est GFR (MDRD) Non-Af 66, BUN/Creatinine Ratio 12.5, Glucose 124 H, Calcium 8.0 L 12/07/17 04:28: WBC 4.9, RBC 4.71, Hgb 11.1 L, Hct 36.5 L, MCV 77.5 L, MCH 23.6 L, MCHC 30.4 L, RDW 17.0 H, RDW Differential 47.1 H, Plt Count 410, MPV 9.3, Immature Gran % (Auto) 0.200, Neut % (Auto) 65.0, Lymph % (Auto) 21.9, [place] % (Auto) 9.7, Eos % (Auto) 2.8, Baso % (Auto) 0.4, Absolute Neuts (auto) 3.2, Absolute Lymphs (auto) 1.08, Total Counted Not Reportable 12/07/17 04:28: Troponin I 0.18 H Current Medications Carvedilol (Coreg) 25 mg PO BID [facility] Last Admin: 12/07/17 09:53 Dose: 25 mg Enoxaparin Sodium (Lovenox) 40 mg SC DAILY@0600 [facility] Last Admin: 12/07/17 05:26 Dose: 40 mg Furosemide (Lasix) 40 mg IV Q8 [facility] Last Admin: 12/07/17 13:34 Dose: 40 mg Labetalol HCl (Trandate) 20 mg IV Q4H PRN PRN PRN Reason: BLOOD PRESSURE Last Admin: 12/07/17 02:41 Dose: 20 mg Lisinopril (Zestril) 40 mg PO DAILY [facility] Last Admin: 12/07/17 09:53 Dose: 40 mg Magnesium Hydroxide (Milk Of Magnesia) 30 ml PO DAILY PRN PRN Reason: Constipation Medical Necessity - Tobacco Use Smoking Status: Current some day smoker Tobacco Use: Cigarettes Assessment/Plan Active and Suspected Problems CHF (congestive heart failure) (Acute) 1. 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 2. Essential Hypertension; she is on lisinopril and Coreg. 3. Cardiomyopathy with ejection fraction of about 15%; the patient would undergo left heart catheterization to rule out coronary stenosis. 4. 9 mm solid right upper lung nodule, bilateral mediastinal and hilar adenopathy; pulmonary input noted. 5. Obesity weight loss recommended. 6. Prophylaxis with Lovenox. Code Visit Inpatient E&M: 76303 Subs Hosp L2
[2017-12-08] VITALS (12 sets, daily range): BP systolic 125–156; BP diastolic 82–106; PULSE 60–70; RESP 16–18; TEMP 36.3–36.7; O2SAT 95–100
[2017-12-08] MEDS: Furosemide 40 MG/4 ML Vial IV (05:19)
[2017-12-08] MEDS: Enoxaparin 40 MG/0.4 ML Syringe SC (05:19)
[2017-12-08] MEDS: Acetaminophen 325 MG Tablet 650 MG PO ×2 (05:19→15:04)
[2017-12-08 06:33] LABS: Absolute Lymphocyte Count 1.48 X10^3/ul (0.83-4.51); Absolute Neutrophil Count 3.2 X10^3/uL (2.0-7.7); Basophil# 0.02 X10^3/uL; Basophil% 0.4 % (0-1); Eosinophil# 0.18 X10^3/uL; Eosinophils% 3.4 % (0-5); Hematocrit 37.3 % (37-47); Hemoglobin 10.9 g/dl (12.0-15.0); Lymphocyte # 1.48 X10^3/ul (4.0); Lymphocyte % 27.7 % (19-41); Mean Corp Hgb Conc 29.2 g/gl (32-36); Mean Corpuscular Volume 78.9 fL (81-99); Mean Platelet Vol. 9.2 fl (6.2-12.0); Monocyte% 9.3 % (0-10); Neutrophil # 3.15 X10^3/uL (2.7-7.7); Neutrophil % 58.8 % (47-70); Platelet Count 407 K/mm3 (150-450); RBC Distribution Width CV 16.9 % (11.6-14.6); RBC Distribution Width SD 48.4 fl (35.1-43.9); Red Blood Count 4.73 M/mm3 (4.2-5.4); White Blood Count 5.4 K/mm3 (4.4-11.0)
[2017-12-08 06:47] LABS: POSITIVE COUNT NO; POSITIVE DIFFERENTIAL NO; POSITIVE MORPHOLOGY NO
[2017-12-08 06:54] LABS: Anion Gap 7 (5-15); BUN 14 mg/dL (7-18); BUN/Creat Ratio 14.6 RATIO (10-20); Calcium,Total 7.9 mg/dL (8.5-10.1); Chloride 95 mmol/L (98-107); Creatinine, Serum 0.96 mg/dL (0.55-1.02); EST Glomerular Filtration Rate 66 mL/min (>60); Est Glom Filt Rate - Afr Amer 80 mL/min (>60); Glucose 139 mg/dL (74-106); Potassium 3.7 mmol/L (3.5-5.1); Sodium Level 135 mmol/L (136-145)
[2017-12-08] MEDS: Lisinopril 40 MG Tablet PO (08:39)
[2017-12-08] MEDS: Carvedilol 25 MG Tablet PO ×2 (08:39→22:09)
--- NOTE | 2017-12-08 09:06 | PN.CARD_ITS ---
Subjectve: Patient seen and evaluated and appears to be doing much better breathing better. Objective: Vital Signs Temp Pulse Resp BP Pulse Ox 97.5 F L 65 16 155/98 H 100 12/08/17 08:37 12/08/17 08:37 12/08/17 08:37 12/08/17 08:37 12/08/17 08:37 Oxygen Delivery Method Room Air Weight: 241 lb 2.971 oz Body Mass Index (BMI) 44.1 Intake and Output for Last 24 Hours 12/06/17 12/07/17 12/08/17 23:59 23:59 23:59 Intake Total 480 / 480 1600 / 1600 Balance 480 / 480 1600 / 1600 General: Awake, Alert, Oriented x 3, Obese HEENT: PERRL, EOMI, Sclera Non Icteric Neck: Supple, Good ROM, No Lymph Node Enlargement Lungs: Clear to auscultation Cardiovascular: Regular Rhythm, Normal S1, Normal S2, No Murmurs, No Rubs, No Gallops Vascular: No Carotid Bruits, Normal Femoral Pulses, Normal Radial Pulses, Normal Dorsalis Pedal Pulse, Normal Posterior Tibial Pulses Abdomen: Bowel Sounds Present, Soft, Non Tender, No HSM, No Organomegaly Extremities: No Cyanosis, No Clubbing, No edema Neurological: No Focal Motor or Sensory Deficit 12/08/17 05:50: Sodium 135 L, Potassium 3.7, Chloride 95 L, Carbon Dioxide 33.0 H, Anion Gap 7, BUN 14, Creatinine 0.96, Est GFR (MDRD) Af Amer 80, Est GFR ( MDRD) Non-Af 66, BUN/Creatinine Ratio 14.6, Glucose 139 H, Calcium 7.9 L 12/08/17 05:50: WBC 5.4, RBC 4.73, Hgb 10.9 L, Hct 37.3, MCV 78.9 L, MCH 23.0 L , MCHC 29.2 L, RDW 16.9 H, RDW Differential 48.4 H, Plt Count 407, MPV 9.2, Immature Gran % (Auto) 0.400, Neut % (Auto) 58.8, Lymph % (Auto) 27.7, [place] % ( Auto) 9.3, Eos % (Auto) 3.4, Baso % (Auto) 0.4, Absolute Neuts (auto) 3.2, Total Counted Not Reportable Rhythm: EKG: ECHO: Stress Test: Cardiac Cath: PCI: CT Surgery: Holter monitor: EPS: PPM: CXR: Chest CT Scan: Medical Necessity - Tobacco Use Smoking Status: Current some day smoker Tobacco Use: Cigarettes Assessment/Plan 1. Congestive heart failure-acute systolic The patient presents with significant shortness of breath which has been progressive and has laboratory findings and x-ray findings consistent with the above. An echocardiogram demonstrated severe left ventricular systolic dysfunction. The etiology of the above is unclear at this time but is likely related to hypertension as well as alcohol use. I do not think this is coronary in origin despite the mild elevation in the troponins. The recommendation at this time would be to restart her EFRAIN inhibitor as well as the beta-landy and diuresis with oral Lasix. Spironolactone may also need to be added. At some point Entresto may be substituted for the lisinopril. A cardiac catheterization should be performed to exclude obstructive coronary disease. Has been scheduled for Saturday a.m. I have discussed the above with her and she does understand. Salt restriction and weight reduction and smoking cessation have all been emphasized. 2. Severe hypertension Patient presents with uncontrolled hypertension. Her blood pressure appears to have improved on the current regimen but still has some room to go. We will continue with her Coreg, EFRAIN inhibitor, and add Norvasc 5 mg a day. A serum renin and aldosterone level would also be obtained to exclude primary aldosteronism. 3. Abnormal cardiac enzymes The patient has mildly abnormal cardiac enzymes which are likely secondary to demand ischemia. She will undergo a cardiac catheterization early next week for further clarification and elucidation of the above. 4. Obesity The above may be contributing to some of her shortness of breath as well. Diet and exercise would need to be instituted after she has been appropriately worked up. Thank you for allowing me to participate in the care of your patient. Please don't hesitate to call if any issues arise
[2017-12-08 09:33] LABS: Hemoglobin A1c 7.1 % (4.2-6.3)
[2017-12-08] MEDS: amLODIPine 5 MG Tablet PO (10:12)
--- NOTE | 2017-12-08 10:53 | PN_ITS ---
Patient Problems: Active and Suspected Problems CHF (congestive heart failure) (Acute) Subjective: Patient did okay overnight. No acute issues were reported. Patient continues to report shortness of breath with exertion, blood pressure is much improved compared to previous. Objective: Echocardiogram was personally reviewed. This was significant for severely depressed ejection fraction - Physical Exam General: Alert, Oriented x3, Cooperative, No apparent distress, - - Morbidly obese. Speaking in full sentences. HEENT: Atraumatic, PERRLA, EOMI, Normocephalic, - - No scleral icterus or injection noted. Oral: Moist Mucosa, No Gingival or Mucosal Lesions/ Ulcerations Neck: Supple, No Nodes, Trachea Midline, JVD, Right Lungs: No rhonchi, No wheeze, No rales, Diminished, - - Symmetric expansion. No dullness to percussion. Cardiovascular: Regular rate, Regular Rhythm, Normal S1, Normal S2, No murmurs, No rub noted, No Gallop Abdomen: Bowel Sounds Present, Soft, Non Tender, Non-Distended, Obese Extremities: No clubbing, No cyanosis, Capillary Refill Less than 3 Seconds, Edema Skin: - - No significant change compared to previous Musculoskeletal: No Tenderness to Palpation of Joints or Extremities, No Muscle Wasting Lymphatic: No Cervical, Supraclavicular, or Inguinal Adenopathy Neurological: Cranial nerves II-XII grossly intact, Neuro grossly intact, Motor Exam 5/5 strength throughout Psych/Mental Status: Alert and oriented to time, place, person, mood and affect Vital Signs Temp Pulse Resp BP Pulse Ox 36.4 C L 65 16 155/98 H 100 12/08/17 08:37 12/08/17 08:37 12/08/17 08:37 12/08/17 08:37 12/08/17 08:37 Oxygen Delivery Method Room Air Weight: 109.4 kg Body Mass Index (BMI) 44.1 Intake and Output for Last 24 Hours 12/06/17 12/07/17 12/08/17 23:59 23:59 23:59 Intake Total 480 / 480 1600 / 1600 Balance 480 / 480 1600 / 1600 Laboratory Tests Past 24 Hrs 12/08/17 12/08/17 12/08/17 05:50 05:50 05:50 WBC 5.4 RBC 4.73 Hgb 10.9 L Hct 37.3 MCV 78.9 L MCH 23.0 L MCHC 29.2 L RDW 16.9 H RDW Differential 48.4 H Plt Count 407 MPV 9.2 Immature Gran % (Auto) 0.400 Neut % (Auto) 58.8 Lymph % (Auto) 27.7 [place] % (Auto) 9.3 Eos % (Auto) 3.4 Baso % (Auto) 0.4 Absolute Neuts (auto) 3.2 Absolute Lymphs (auto) 1.48 Total Counted Not Reportable Sodium 135 L Potassium 3.7 Chloride 95 L Carbon Dioxide 33.0 H Anion Gap 7 BUN 14 Creatinine 0.96 Estim Creat Clear Calc 57.30 Est GFR (MDRD) Af Amer 80 Est GFR (MDRD) Non-Af 66 BUN/Creatinine Ratio 14.6 Glucose 139 H Hemoglobin A1c 7.1 H Calcium 7.9 L Renin Aldosterone 12/08/17 10:21 WBC RBC Hgb Hct MCV MCH MCHC RDW RDW Differential Plt Count MPV Immature Gran % (Auto) Neut % (Auto) Lymph % (Auto) [place] % (Auto) Eos % (Auto) Baso % (Auto) Absolute Neuts (auto) Absolute Lymphs (auto) Total Counted Sodium Potassium Chloride Carbon Dioxide Anion Gap BUN Creatinine Estim Creat Clear Calc Est GFR (MDRD) Af Amer Est GFR (MDRD) Non-Af BUN/Creatinine Ratio Glucose Hemoglobin A1c Calcium Renin Pending Aldosterone Pending Medical Necessity - Tobacco Use Smoking Status: Current some day smoker Tobacco Use: Cigarettes Assessment/Plan Active and Suspected Problems CHF (congestive heart failure) (Acute) RECOMMENDATIONS 1. As needed aerosols are likely sufficient 2. Encourage incentive spirometer and activity as tolerated 3. Ambulatory pulse ox prior to discharge 4. Follow-up CT in 3 months for lung nodules, follow-up in the pulmonary clinic for results 5. Case management referral for assistance with medications/healthcare 6. Hemodynamically stable on room air. Will sign off from a critical care/ pulmonary perspective. IMPRESSIONS 1. Right-mid lung nodules Patient with multiple right-sided lung nodules of unclear significance. Patient does have a history of smoking in the past and is not very clear on how much she actually smokes currently. Patient likely would be high risk for lung malignancy. Plan to repeat CT scan in 3 months to assess for growth. Will need monitored for 2 years. Patient has not had any screening mammograms, so this should also be completed. Patient can follow-up in the pulmonary office with nurse practitioner 2 weeks after discharge for arrangement of repeat CT scan. 2. Shortness of breath Patient reports improvement in shortness of breath on exertion. Patient with elevated troponin and blood pressure on presentation. Clinical suspicion for congestive heart failure leading to shortness of breath on exertion. Patient does have a long smoking history. Outpatient complete pulmonary function test. Patient's depressed ejection fraction is likely explaining patient shortness of breath on exertion. Will sign off from a pulmonary perspective, but pulmonary function tests as an outpatient would be appropriate. 3. Hypertensive urgency Since blood pressure is much improved now compared to presentation. Patient does have a headache, but no focal neurologic deficits to suggest central ischemia. Patient did state that she is known to have significant difficulty with swallowing pills and may be better if they can be crushed or small in size. This was made known to the nursing staff. 4. Anxiety/depression/morbid obesity/alcohol abuse/tobacco abuse Complicates care, management, recovery, and prognosis. Lisinopril started by hospitalist, would consider additional agent with significant hypertension. Hopefully, with diuresis her blood pressure will also improve. As needed IV labetalol was ordered. Encouraged smoking cessation. Monitor for alcohol withdrawal, CIWA ordered. Patient denies any previous withdrawal when she goes without alcohol. Code Visit Inpatient E&M: 64042 Subs Hosp L2
--- NOTE | 2017-12-08 12:10 | PN_ITS ---
Patient Problems: Active and Suspected Problems CHF (congestive heart failure) (Acute) Vitals/I&O's: Vital Signs Temp Pulse Resp BP Pulse Ox 97.5 F L 60 16 155/98 H 100 12/08/17 08:37 12/08/17 11:02 12/08/17 08:37 12/08/17 08:37 12/08/17 08:37 Oxygen Delivery Method Room Air Weight: 109.4 kg Body Mass Index (BMI) 44.1 Intake and Output for Last 24 Hours 12/06/17 12/07/17 12/08/17 23:59 23:59 23:59 Intake Total 480 / 480 1600 / 1600 Balance 480 / 480 1600 / 1600 Laboratory Results 12/08/17 05:50: Sodium 135 L, Potassium 3.7, Chloride 95 L, Carbon Dioxide 33.0 H, Anion Gap 7, BUN 14, Creatinine 0.96, Estim Creat Clear Calc 57.30, Est GFR ( MDRD) Af Amer 80, Est GFR (MDRD) Non-Af 66, BUN/Creatinine Ratio 14.6, Glucose 139 H, Calcium 7.9 L 12/08/17 05:50: WBC 5.4, RBC 4.73, Hgb 10.9 L, Hct 37.3, MCV 78.9 L, MCH 23.0 L , MCHC 29.2 L, RDW 16.9 H, RDW Differential 48.4 H, Plt Count 407, MPV 9.2, Immature Gran % (Auto) 0.400, Neut % (Auto) 58.8, Lymph % (Auto) 27.7, [place] % ( Auto) 9.3, Eos % (Auto) 3.4, Baso % (Auto) 0.4, Absolute Neuts (auto) 3.2, Absolute Lymphs (auto) 1.48, Total Counted Not Reportable 12/08/17 05:50: Hemoglobin A1c 7.1 H 12/08/17 10:21: Renin Pending, Aldosterone Pending Current Medications Acetaminophen (Tylenol) 650 mg PO Q6H PRN PRN PRN Reason: MILD PAIN (-11/23) Last Admin: 12/08/17 05:19 Dose: 650 mg Amlodipine Besylate (Norvasc) 5 mg PO DAILY [facility] Last Admin: 12/08/17 10:12 Dose: 5 mg Carvedilol (Coreg) 25 mg PO BID [facility] Last Admin: 12/08/17 08:39 Dose: 25 mg Enoxaparin Sodium (Lovenox) 40 mg SC DAILY@0600 [facility] Last Admin: 12/08/17 05:19 Dose: 40 mg Furosemide (Lasix) 40 mg PO BID@1000,1800 [facility] Last Admin: 12/08/17 10:12 Dose: Not Given Sodium Chloride () 1,000 mls @ 0 mls/hr IV .Q0M [facility]PL[facility] PRN Reason: KVO Labetalol HCl (Trandate) 20 mg IV Q4H PRN PRN PRN Reason: BLOOD PRESSURE Last Admin: 12/07/17 02:41 Dose: 20 mg Lisinopril (Zestril) 40 mg PO DAILY [facility] Last Admin: 12/08/17 08:39 Dose: 40 mg Magnesium Hydroxide (Milk Of Magnesia) 30 ml PO DAILY PRN PRN Reason: Constipation Medical Necessity - Tobacco Use Smoking Status: Current some day smoker Tobacco Use: Cigarettes Assessment/Plan Active and Suspected Problems CHF (congestive heart failure) (Acute) 1. 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 2. Essential Hypertension; she is on lisinopril and Coreg. 3. Cardiomyopathy with ejection fraction of about 15%; the patient would undergo left heart catheterization to rule out coronary stenosis. 4. 9 mm solid right upper lung nodule, bilateral mediastinal and hilar adenopathy; pulmonary input noted. 5. Obesity weight loss recommended. 6. Prophylaxis with Lovenox.
--- NOTE | 2017-12-08 12:11 | PCM.PN.HOSP ---
Patient Problems: Active and Suspected Problems CHF (congestive heart failure) (Acute) Subjective: CC: Shortness of breath Objective: Interval history: Mitzi Castelan is a 47 year old F who presented to the emergency room at [facility] with progressive shortness of breath and leg swelling for 1 week. The patient was diagnosed with acute congestive heart failure and transferred to [facility]. CT angiogram of the chest was obtained that was negative for pulmonary embolism but revealed 9 mm millimeters solid right upper lobe lung nodule, bilateral mediastinal hilar and hilar adenopathy as well as small right pleural effusion and cardiomegaly. Her echocardiogram revealed ejection fraction of about 15 % as well as diastolic dysfunction. she has improved with IV diuresis, given his significant cardiomyopathy she is to undergo left heart catheterization tomorrow to exclude out coronary ischemia. Vitals/I&O's: Vital Signs Temp Pulse Resp BP Pulse Ox 97.5 F L 60 16 155/98 H 100 12/08/17 08:37 12/08/17 11:02 12/08/17 08:37 12/08/17 08:37 12/08/17 08:37 Oxygen Delivery Method Room Air Weight: 109.4 kg Body Mass Index (BMI) 44.1 Intake and Output for Last 24 Hours 12/06/17 12/07/17 12/08/17 23:59 23:59 23:59 Intake Total 480 / 480 1600 / 1600 Balance 480 / 480 1600 / 1600 General: Alert, Oriented x3 HEENT: Atraumatic Oral: Moist Mucosa Neck: Supple, No JVD Lungs: Clear to auscultation Cardiovascular: Regular rate, Normal S1, Normal S2 Abdomen: Bowel Sounds Present, Soft, Non Tender Extremities: No edema Neurological: Cranial nerves II-XII grossly intact, Motor Exam 5/5 strength throughout Laboratory Results 12/08/17 05:50: Sodium 135 L, Potassium 3.7, Chloride 95 L, Carbon Dioxide 33.0 H, Anion Gap 7, BUN 14, Creatinine 0.96, Estim Creat Clear Calc 57.30, Est GFR (MDRD) Af Amer 80, Est GFR (MDRD) Non-Af 66, BUN/Creatinine Ratio 14.6, Glucose 139 H, Calcium 7.9 L 12/08/17 05:50: WBC 5.4, RBC 4.73, Hgb 10.9 L, Hct 37.3, MCV 78.9 L, MCH 23.0 L, MCHC 29.2 L, RDW 16.9 H, RDW Differential 48.4 H, Plt Count 407, MPV 9.2, Immature Gran % (Auto) 0.400, Neut % (Auto) 58.8, Lymph % (Auto) 27.7, [place] % (Auto) 9.3, Eos % (Auto) 3.4, Baso % (Auto) 0.4, Absolute Neuts (auto) 3.2, Absolute Lymphs (auto) 1.48, Total Counted Not Reportable 12/08/17 05:50: Hemoglobin A1c 7.1 H 12/08/17 10:21: Renin Pending, Aldosterone Pending Current Medications Acetaminophen (Tylenol) 650 mg PO Q6H PRN PRN PRN Reason: MILD PAIN (-3) Last Admin: 12/08/17 05:19 Dose: 650 mg Amlodipine Besylate (Norvasc) 5 mg PO DAILY [facility] Last Admin: 12/08/17 10:12 Dose: 5 mg Carvedilol (Coreg) 25 mg PO BID [facility] Last Admin: 12/08/17 08:39 Dose: 25 mg Enoxaparin Sodium (Lovenox) 40 mg SC DAILY@0600 [facility] Last Admin: 12/08/17 05:19 Dose: 40 mg Furosemide (Lasix) 40 mg PO BID@1000,1800 [facility] Last Admin: 12/08/17 10:12 Dose: Not Given Sodium Chloride () 1,000 mls @ 0 mls/hr IV .Q0M [facility] PRN Reason: KVO Labetalol HCl (Trandate) 20 mg IV Q4H PRN PRN PRN Reason: BLOOD PRESSURE Last Admin: 12/07/17 02:41 Dose: 20 mg Lisinopril (Zestril) 40 mg PO DAILY [facility] Last Admin: 12/08/17 08:39 Dose: 40 mg Magnesium Hydroxide (Milk Of Magnesia) 30 ml PO DAILY PRN PRN Reason: Constipation Medical Necessity - Tobacco Use Smoking Status: Current some day smoker Tobacco Use: Cigarettes Assessment/Plan Active and Suspected Problems CHF (congestive heart failure) (Acute) 1. Acute systolic / diastolic heart failure ; we will continue on IV Lasix as ordered, fluid and salt restriction. 2. Essential Hypertension; she is on lisinopril , Coreg and Norvasc. 3. Cardiomyopathy with ejection fraction of about 15%; the patient would undergo left heart catheterization in AM to rule out coronary ischemia. 4. 9 mm solid right upper lung nodule, bilateral mediastinal and hilar adenopathy; pulmonary consulted and input noted. 5. Obesity weight loss recommended. 6. DVT Prophylaxis with Lovenox. Code Visit Inpatient E&M: 89966 Subs Hosp L2
--- NOTE | 2017-12-08 12:18 | PN_ITS ---
Patient Problems: Active and Suspected Problems CHF (congestive heart failure) (Acute) Subjective: CC: Shortness of breath Objective: Interval history: Mitzi Castelan is a 47 year old F who presented to the emergency room at [place] with progressive shortness of breath and leg swelling for 1 week. The patient was diagnosed with acute congestive heart failure and transferred to [facility]. CT angiogram of the chest was obtained that was negative for pulmonary embolism but revealed 9 mm millimeters solid right upper lobe lung nodule, bilateral mediastinal hilar and hilar adenopathy as well as small right pleural effusion and cardiomegaly. Her echocardiogram revealed ejection fraction of about 15 % as well as diastolic dysfunction. she has improved with IV diuresis, given his significant cardiomyopathy she is to undergo left heart catheterization tomorrow to exclude out coronary ischemia. Vitals/I&O's: Vital Signs Temp Pulse Resp BP Pulse Ox 97.5 F L 60 16 155/98 H 100 12/08/17 08:37 12/08/17 11:02 12/08/17 08:37 12/08/17 08:37 12/08/17 08:37 Oxygen Delivery Method Room Air Weight: 109.4 kg Body Mass Index (BMI) 44.1 Intake and Output for Last 24 Hours 12/06/17 12/07/17 12/08/17 23:59 23:59 23:59 Intake Total 480 / 480 1600 / 1600 Balance 480 / 480 1600 / 1600 General: Alert, Oriented x3 HEENT: Atraumatic Oral: Moist Mucosa Neck: Supple, No JVD Lungs: Clear to auscultation Cardiovascular: Regular rate, Normal S1, Normal S2 Abdomen: Bowel Sounds Present, Soft, Non Tender Extremities: No edema Neurological: Cranial nerves II-XII grossly intact, Motor Exam 5/5 strength throughout Laboratory Results 12/08/17 05:50: Sodium 135 L, Potassium 3.7, Chloride 95 L, Carbon Dioxide 33.0 H, Anion Gap 7, BUN 14, Creatinine 0.96, Estim Creat Clear Calc 57.30, Est GFR ( MDRD) Af Amer 80, Est GFR (MDRD) Non-Af 66, BUN/Creatinine Ratio 14.6, Glucose 139 H, Calcium 7.9 L 12/08/17 05:50: WBC 5.4, RBC 4.73, Hgb 10.9 L, Hct 37.3, MCV 78.9 L, MCH 23.0 L , MCHC 29.2 L, RDW 16.9 H, RDW Differential 48.4 H, Plt Count 407, MPV 9.2, Immature Gran % (Auto) 0.400, Neut % (Auto) 58.8, Lymph % (Auto) 27.7, [place] % ( Auto) 9.3, Eos % (Auto) 3.4, Baso % (Auto) 0.4, Absolute Neuts (auto) 3.2, Absolute Lymphs (auto) 1.48, Total Counted Not Reportable 12/08/17 05:50: Hemoglobin A1c 7.1 H 12/08/17 10:21: Renin Pending, Aldosterone Pending Current Medications Acetaminophen (Tylenol) 650 mg PO Q6H PRN PRN PRN Reason: MILD PAIN (-3) Last Admin: 12/08/17 05:19 Dose: 650 mg Amlodipine Besylate (Norvasc) 5 mg PO DAILY [facility] Last Admin: 12/08/17 10:12 Dose: 5 mg Carvedilol (Coreg) 25 mg PO BID [facility] Last Admin: 12/08/17 08:39 Dose: 25 mg Enoxaparin Sodium (Lovenox) 40 mg SC DAILY@0600 [facility] Last Admin: 12/08/17 05:19 Dose: 40 mg Furosemide (Lasix) 40 mg PO BID@1000,1800 [facility] Last Admin: 12/08/17 10:12 Dose: Not Given Sodium Chloride () 1,000 mls @ 0 mls/hr IV .Q0M [facility] PRN Reason: KVO Labetalol HCl (Trandate) 20 mg IV Q4H PRN PRN PRN Reason: BLOOD PRESSURE Last Admin: 12/07/17 02:41 Dose: 20 mg Lisinopril (Zestril) 40 mg PO DAILY [facility] Last Admin: 12/08/17 08:39 Dose: 40 mg Magnesium Hydroxide (Milk Of Magnesia) 30 ml PO DAILY PRN PRN Reason: Constipation Medical Necessity - Tobacco Use Smoking Status: Current some day smoker Tobacco Use: Cigarettes Assessment/Plan Active and Suspected Problems CHF (congestive heart failure) (Acute) 1. Acute systolic / diastolic heart failure ; we will continue on IV Lasix as ordered, fluid and salt restriction. 2. Essential Hypertension; she is on lisinopril , Coreg and Norvasc. 3. Cardiomyopathy with ejection fraction of about 15%; the patient would undergo left heart catheterization in AM to rule out coronary ischemia. 4. 9 mm solid right upper lung nodule, bilateral mediastinal and hilar adenopathy; pulmonary consulted and input noted. 5. Obesity weight loss recommended. 6. DVT Prophylaxis with Lovenox. Code Visit Inpatient E&M: 33223 Subs Hosp L2
[2017-12-08] MEDS: Furosemide 40 MG Tablet PO (17:19)
[2017-12-08 20:56] LABS: Pregnancy, Serum, hCG Quali. NEGATIVE Negative (0-9 Nonpreg)
[2017-12-08 23:01] LABS: Bacteria 0 SEEN /hpf (None Seen); Mucous, Urine 0 SEEN /hpf (<or=2+); Red Blood Cells-Urine 0 SEEN /hpf (0-5); Squamous Epithelial Cells - UA 0 SEEN /hpf (5-10); White Blood Cells 0 SEEN /hpf (0-5)
[2017-12-08 23:24] LABS: Color, Urine Yellow (Yellow); Glucose, Dipstick Normal (Normal); Ketone-Dipstick Negative (Negative); Leukocyte Esterase-Dipstick Negative /ul (Negative); Nitrite-Dipstick Negative (Negative); Occult Blood-Urine Negative /ul (Negative); Protein-Dipstick Negative (Negative); Urine Bilirubin Dipstick Negative (Negative); Urine Clarity Clear (Clear); Urine Urobilinogen Normal (Normal)
[2017-12-09] VITALS (15 sets, daily range): BP systolic 108–152; BP diastolic 67–98; PULSE 58–67; RESP 14–18; TEMP 36.3–36.6; O2SAT 97–100
--- NOTE | 2017-12-09 05:55 | RAD_ITS ---
STUDY: X-RAY CHEST REASON FOR EXAM: Female, 47 years old. Preop for heart catheter TECHNIQUE: Single AP portable view of the chest. COMPARISON: None. FINDINGS: EKG leads overlie the chest The lungs are clear and expanded. There is no demonstrated pleural abnormality. Normal size heart. Normal mediastinum and mary. Normal visualized pulmonary arteries. Normal visualized aortic arch and descending thoracic aorta. Normal visualized thoracic spine. Normal visualized ribs, clavicles, and shoulders. There is no demonstrated abnormality of the visualized soft tissue structures of the upper abdomen. RAD/Chest 1 View (Portable) IMPRESSION: No acute pulmonary process Electronically Signed: Bartolo Everett MD at 7:49 EDT , Service support ,
--- NOTE | 2017-12-09 05:55 | EKG12_ITS ---
Test Reason : AM EKG Blood Pressure : / mmHG Vent. Rate : 065 BPM Atrial Rate : 065 BPM P-R Int : 172 ms QRS Dur : 076 ms QT Int : 398 ms P-R-T Axes : 052 013 077 degrees QTc Int : 413 ms Normal sinus rhythm Nonspecific T wave abnormality Abnormal ECG No previous ECGs available Confirmed by YAW MONZON, HANNA ([id number]), pictures editor BOB BRENNAN ([id number]) on 12/12/2017 3:37:53 PM Referred By: Eva Queen Confirmed By:HANNA TIDWELL MD
[2017-12-09 06:13] LABS: Absolute Neutrophil Count 2.5 X10^3/uL (2.0-7.7); Basophil# 0.02 X10^3/uL; Basophil% 0.5 % (0-1); Eosinophil# 0.14 X10^3/uL; Eosinophils% 3.2 % (0-5); Hematocrit 37.4 % (37-47); Mean Corp Hgb Conc 29.4 g/gl (32-36); Mean Corpuscular Hgb 23.3 pg (27.0-32.0); Mean Corpuscular Volume 79.1 fL (81-99); Mean Platelet Vol. 9.1 fl (6.2-12.0); Monocyte# 0.58 X10^3/uL; Monocyte% 13.1 % (0-10); Neutrophil # 2.49 X10^3/uL (2.7-7.7); Platelet Count 377 K/mm3 (150-450); RBC Distribution Width CV 16.8 % (11.6-14.6); RBC Distribution Width SD 48.6 fl (35.1-43.9); Red Blood Count 4.73 M/mm3 (4.2-5.4); White Blood Count 4.4 K/mm3 (4.4-11.0)
[2017-12-09 06:17] LABS: International Normalized Ratio 1.3; Partial Thromboplast Time 34.3 Seconds (24.1-36.2); Prothrombin Time (Protime)PT. 15.8 SECONDS (11.7-14.9)
[2017-12-09 06:21] LABS: Anion Gap 4 (5-15); BUN 17 mg/dL (7-18); BUN/Creat Ratio 17.2 RATIO (10-20); Calcium,Total 8.3 mg/dL (8.5-10.1); Chloride 98 mmol/L (98-107); Creatinine, Serum 0.99 mg/dL (0.55-1.02); EST Glomerular Filtration Rate 64 mL/min (>60); Est Glom Filt Rate - Afr Amer 77 mL/min (>60); Estimated Creatinine Clearance 55.56 ml/min; Glucose 92 mg/dL (74-106); Potassium 3.8 mmol/L (3.5-5.1); Sodium Level 138 mmol/L (136-145)
[2017-12-09] MEDS: amLODIPine 5 MG Tablet PO (06:27)
[2017-12-09] MEDS: Lisinopril 40 MG Tablet PO (06:27)
[2017-12-09] MEDS: Carvedilol 25 MG Tablet PO (06:27)
[2017-12-09 06:32] LABS: POSITIVE COUNT NO; POSITIVE DIFFERENTIAL NO; POSITIVE MORPHOLOGY NO
--- NOTE | 2017-12-09 09:23 | PCM.PN.CARD ---
Subjectve: Patient seen and evaluated and underwent a cardiac catheterization today Objective: Vital Signs Temp Pulse Resp BP Pulse Ox 97.4 F L 64 18 121/78 H 99 12/09/17 04:00 12/09/17 07:00 12/09/17 04:00 12/09/17 06:25 12/09/17 04:00 Oxygen Delivery Method Room Air Weight: 240 lb 8.389 oz Body Mass Index (BMI) 44.1 Intake and Output for Last 24 Hours 12/07/17 12/08/17 12/09/17 23:59 23:59 23:59 Intake Total 1600 / 1599 1300 / 1300 Balance 1599 1300 / 1300 General: Awake, Alert, Oriented x 3, Obese HEENT: PERRL, EOMI, Sclera Non Icteric Neck: Supple, Good ROM, No Lymph Node Enlargement Lungs: Clear to auscultation Cardiovascular: Regular Rhythm, Normal S1, Normal S2, No Murmurs, No Rubs, No Gallops Vascular: No Carotid Bruits, Normal Femoral Pulses, Normal Radial Pulses, Normal Dorsalis Pedal Pulse, Normal Posterior Tibial Pulses Abdomen: Bowel Sounds Present, Soft, Non Tender, No HSM, No Organomegaly Extremities: No Cyanosis, No Clubbing, No edema Neurological: No Focal Motor or Sensory Deficit 12/08/17 05:50: Hemoglobin A1c 7.1 H 12/08/17 22:30: Urine Color Yellow, Urine Clarity Clear, Urine pH 6.0, Ur Specific [place] 1.010, Urine Protein Negative, Urine Glucose (UA) Normal, Urine Ketones Negative, Urine Occult Blood Negative, Urine Nitrite Negative, Urine Bilirubin Negative, Urine Urobilinogen Normal, Ur Leukocyte Esterase Negative, Urine RBC 0 SEEN, Urine WBC 0 SEEN 12/09/17 05:25: Sodium 138, Potassium 3.8, Chloride 98, Carbon Dioxide 36.0 H, Anion Gap 4 L, BUN 17, Creatinine 0.99, Est GFR (MDRD) Af Amer 77, Est GFR (MDRD) Non-Af 64, BUN/Creatinine Ratio 17.2, Glucose 92, Calcium 8.3 L 12/09/17 05:25: WBC 4.4, RBC 4.73, Hgb 11.0 L, Hct 37.4, MCV 79.1 L, MCH 23.3 L, MCHC 29.4 L, RDW 16.8 H, RDW Differential 48.6 H, Plt Count 377, MPV 9.1, Immature Gran % (Auto) 0.200, Neut % (Auto) 56.0, Lymph % (Auto) 27.0, [place] % (Auto) 13.1 H, Eos % (Auto) 3.2, Baso % (Auto) 0.5, Absolute Neuts (auto) 2.5, Total Counted Not Reportable 12/09/17 05:25: PT 15.8 H, INR 1.3, APTT 34.3 Rhythm: EKG: ECHO: Stress Test: Cardiac Cath: PCI: CT Surgery: Holter monitor: EPS: PPM: CXR: Chest CT Scan: Medical Necessity - Tobacco Use Smoking Status: Current some day smoker Tobacco Use: Cigarettes Assessment/Plan 1. Congestive heart failure-acute systolic The patient presents with significant shortness of breath which has been progressive and has laboratory findings and x-ray findings consistent with the above. An echocardiogram demonstrated severe left ventricular systolic dysfunction. The etiology of the above is unclear at this time but is likely related to hypertension as well as alcohol use. Her cardiac catheterization today demonstrated the following: Left main coronary artery was normal. Left anterior descending artery with 40% proximal to mid stenosis in the first diagonal vessel with 50-60% proximal stenosis. Nondominant left circumflex artery with no significant disease. Dominant right coronary artery with no significant disease. Severe left ventricular systolic dysfunction with estimated EF of 30% global. Based on the above angiographic findings the patient will be treated with aggressive medical therapy. 2. Severe hypertension Patient presents with uncontrolled hypertension. Her blood pressure appears to have improved on the current regimen but still has some room to go. We will continue with her Coreg, EFRAIN inhibitor, and add Norvasc 5 mg a day. A serum renin and aldosterone level would also be obtained to exclude primary aldosteronism. 3. Abnormal cardiac enzymes The patient has mildly abnormal cardiac enzymes which are likely secondary to demand ischemia. She will undergo a cardiac catheterization early next week for further clarification and elucidation of the above. 4. Obesity The above may be contributing to some of her shortness of breath as well. Diet and exercise would need to be instituted after she has been appropriately worked up. Thank you for allowing me to participate in the care of your patient. Please don't hesitate to call if any issues arise. Above has been discussed with her daughter Zoey. Patient can be discharged later today for outpatient follow-up in my office with my nurse practitioner.
--- NOTE | 2017-12-09 09:26 | PN.CARD_ITS ---
Subjectve: Patient seen and evaluated and underwent a cardiac catheterization today Objective: Vital Signs Temp Pulse Resp BP Pulse Ox 97.4 F L 64 18 121/78 H 99 12/09/17 04:00 12/09/17 07:00 12/09/17 04:00 12/09/17 06:25 12/09/17 04:00 Oxygen Delivery Method Room Air Weight: 240 lb 8.389 oz Body Mass Index (BMI) 44.1 Intake and Output for Last 24 Hours 12/07/17 12/08/17 12/09/17 23:59 23:59 23:59 Intake Total 1600 / 1599 1300 / 1300 Balance 1599 1300 / 1300 General: Awake, Alert, Oriented x 3, Obese HEENT: PERRL, EOMI, Sclera Non Icteric Neck: Supple, Good ROM, No Lymph Node Enlargement Lungs: Clear to auscultation Cardiovascular: Regular Rhythm, Normal S1, Normal S2, No Murmurs, No Rubs, No Gallops Vascular: No Carotid Bruits, Normal Femoral Pulses, Normal Radial Pulses, Normal Dorsalis Pedal Pulse, Normal Posterior Tibial Pulses Abdomen: Bowel Sounds Present, Soft, Non Tender, No HSM, No Organomegaly Extremities: No Cyanosis, No Clubbing, No edema Neurological: No Focal Motor or Sensory Deficit 12/08/17 05:50: Hemoglobin A1c 7.1 H 12/08/17 22:30: Urine Color Yellow, Urine Clarity Clear, Urine pH 6.0, Ur Specific [place] 1.010, Urine Protein Negative, Urine Glucose (UA) Normal, Urine Ketones Negative, Urine Occult Blood Negative, Urine Nitrite Negative, Urine Bilirubin Negative, Urine Urobilinogen Normal, Ur Leukocyte Esterase Negative, Urine RBC 0 SEEN, Urine WBC 0 SEEN 12/09/17 05:25: Sodium 138, Potassium 3.8, Chloride 98, Carbon Dioxide 36.0 H, Anion Gap 4 L, BUN 17, Creatinine 0.99, Est GFR (MDRD) Af Amer 77, Est GFR (MDRD ) Non-Af 64, BUN/Creatinine Ratio 17.2, Glucose 92, Calcium 8.3 L 12/09/17 05:25: WBC 4.4, RBC 4.73, Hgb 11.0 L, Hct 37.4, MCV 79.1 L, MCH 23.3 L , MCHC 29.4 L, RDW 16.8 H, RDW Differential 48.6 H, Plt Count 377, MPV 9.1, Immature Gran % (Auto) 0.200, Neut % (Auto) 56.0, Lymph % (Auto) 27.0, [place] % ( Auto) 13.1 H, Eos % (Auto) 3.2, Baso % (Auto) 0.5, Absolute Neuts (auto) 2.5, Total Counted Not Reportable 12/09/17 05:25: PT 15.8 H, INR 1.3, APTT 34.3 Rhythm: EKG: ECHO: Stress Test: Cardiac Cath: PCI: CT Surgery: Holter monitor: EPS: PPM: CXR: Chest CT Scan: Medical Necessity - Tobacco Use Smoking Status: Current some day smoker Tobacco Use: Cigarettes Assessment/Plan 1. Congestive heart failure-acute systolic The patient presents with significant shortness of breath which has been progressive and has laboratory findings and x-ray findings consistent with the above. An echocardiogram demonstrated severe left ventricular systolic dysfunction. The etiology of the above is unclear at this time but is likely related to hypertension as well as alcohol use. Her cardiac catheterization today demonstrated the following: Left main coronary artery was normal. Left anterior descending artery with 40% proximal to mid stenosis in the first diagonal vessel with 50-60% proximal stenosis. Nondominant left circumflex artery with no significant disease. Dominant right coronary artery with no significant disease. Severe left ventricular systolic dysfunction with estimated EF of 30% global. Based on the above angiographic findings the patient will be treated with aggressive medical therapy. 2. Severe hypertension Patient presents with uncontrolled hypertension. Her blood pressure appears to have improved on the current regimen but still has some room to go. We will continue with her Coreg, EFRAIN inhibitor, and add Norvasc 5 mg a day. A serum renin and aldosterone level would also be obtained to exclude primary aldosteronism. 3. Abnormal cardiac enzymes The patient has mildly abnormal cardiac enzymes which are likely secondary to demand ischemia. She will undergo a cardiac catheterization early next week for further clarification and elucidation of the above. 4. Obesity The above may be contributing to some of her shortness of breath as well. Diet and exercise would need to be instituted after she has been appropriately worked up. Thank you for allowing me to participate in the care of your patient. Please don't hesitate to call if any issues arise. Above has been discussed with her daughter Zoey. Patient can be discharged later today for outpatient follow-up in my office with my nurse practitioner.
[2017-12-09] MEDS: 0.9% Normal Saline 1,000 ML 60 ML IV (09:51)
[2017-12-09] MEDS: Furosemide 40 MG Tablet PO (10:15)
--- NOTE | 2017-12-09 13:51 | NURSING ---
cardiac catheterization recovery documentation completed by Cynthia, student nurse, was done under the supervision of this RN. This RN agrees with documentation.
--- NOTE | 2017-12-09 14:36 | CASEMGMT ---
Social Work spoke with patient about her d/c meds. SW told her that they are all around $4 at [facility]. She said she can manage this. The only one that is not $4 is Lipitor. MICHAEL gave her a prescription assistance program application. MICHAEL told her she needs to follow up with a physician in the community. MICHAEL confirmed she was given a list of physicians including information on [facility]'s financial assistance program. She was also given a Medicaid application. MICHAEL told her she needs to get that completed and sent in to the local [facility] office where she is going to be residing. Patient then lied back down in bed covered up with blankets. MICHAEL asked if she had somewhere to go at d/c and she said she does. Syeda CORBIN
--- NOTE | 2017-12-09 15:38 | PCM.DC ---
- Discharge Diagnoses Current Active Problems: Current Active and Chronic Problems CHF (congestive heart failure) (Acute) Hypertension (Chronic) You will use the following diet at home:: No restrictions Your food should be the consistency of: Regular Your liquids should be the consistency of: Regular/Thin Discharge Activity: Return to Normal Activity Weight Bearing Status: Full weight bearing Allergies/Adverse Reactions: Allergies No Known Allergies Allergy (Verified 12/06/17 14:48) Medications to take at Discharge Amlodipine [Norvasc] 5 mg PO DAILY #30 tab 12/09/17 Aspirin [Adult Aspirin Regimen] 81 mg PO DAILY #30 tablet. 12/09/17 Atorvastatin Calcium [Lipitor] 20 mg PO QHS #30 tab 12/09/17 Carvedilol [Coreg (Beta Tony)] 25 mg PO BID #60 tab 12/09/17 Furosemide [Lasix] 40 mg PO DAILY #30 tab 12/09/17 Lisinopril [Zestril] 40 mg PO DAILY #30 tab 12/09/17 The following prescriptions were given: Amlodipine [Norvasc] 5 mg PO DAILY #30 tab Aspirin [Adult Aspirin Regimen] 81 mg PO DAILY #30 tablet. Atorvastatin Calcium [Lipitor] 20 mg PO QHS #30 tab Furosemide [Lasix] 40 mg PO DAILY #30 tab Lisinopril [Zestril] 40 mg PO DAILY #30 tab Carvedilol [Coreg (Beta Tony)] 25 mg PO BID #60 tab Primary Care Physician: Care Physician,No Primary [Primary Care Provider] - Please follow up with your Primary Care Physician in: suggest your find primary care physician in the next 3 weeks to make an michael Please Follow Up With: Colby Schroeder MD
--- NOTE | 2017-12-10 19:02 | PCM.DC.SUM ---
Discharge Date and Diagnosis Date of Admission: 12/06/17 Date of Discharge: 12/09/17 - Primary Discharge Diagnosis #1 acute on chronic systolic congestive heart failure secondary to hypertensive cardiomyopathy #2 hypertensive cardiomyopathy with reduced ejection fraction #3 hypertensive emergency #4 morbid obesity #5 right upper lung nodule-etiology unclear #6 demand ischemia #7 nonocclusive coronary artery disease #8 moderate pulmonary hypertension - Secondary Discharge Diagnosis Chronic Problems Hypertension (Chronic) Hospital Course and Treatment Procedures: 2-D Echocardiogram, Cardiac catheterization Summary of Care Provided: The patient is a 47 year old F who was transferred from [facility] to [facility] as a direct admission after presenting with shortness of breath at [facility] emergency room. Workup in the emergency room at [facility] revealed the patient have uncontrolled hypertension and CHF, patient's cardiac enzymes were also elevated. Patient had been diagnosed previously with hypertension and CHF but had not followed up with a physician as directed. Patient was admitted to PCU, echocardiogram was obtained which showed a severely reduced ejection fraction of 15% along with moderate pulmonary hypertension, patient was treated with IV diuretics and was seen by cardiology. Patient underwent a cardiac catheterization on 12/09/17 which showed nonocclusive coronary artery disease and a cardiomyopathy which was felt to be hypertensive in nature with an EF of 30%. On 12/09/17, patient was seen and examined and felt to be in stable condition for discharge home. Discharge Activity: Return to Normal Activity Weight Bearing Status: Full weight bearing Home Medications: Medications to take at Discharge Amlodipine [Norvasc] 5 mg PO DAILY #30 tab 12/09/17 Aspirin [Adult Aspirin Regimen] 81 mg PO DAILY #30 tablet. 12/09/17 Atorvastatin Calcium [Lipitor] 20 mg PO QHS #30 tab 12/09/17 Carvedilol [Coreg (Beta Tony)] 25 mg PO BID #60 tab 12/09/17 Furosemide [Lasix] 40 mg PO DAILY #30 tab 12/09/17 Lisinopril [Zestril] 40 mg PO DAILY #30 tab 12/09/17 Following Prescrptions Were Given to Patient: Amlodipine [Norvasc] 5 mg PO DAILY #30 tab Aspirin [Adult Aspirin Regimen] 81 mg PO DAILY #30 tablet. Atorvastatin Calcium [Lipitor] 20 mg PO QHS #30 tab Furosemide [Lasix] 40 mg PO DAILY #30 tab Lisinopril [Zestril] 40 mg PO DAILY #30 tab Carvedilol [Coreg (Beta Tony)] 25 mg PO BID #60 tab Primary Care Physician: Care Physician,No Primary [Primary Care Provider] - Please follow up with your Primary Care Physician in: suggest your find primary care physician in the next 3 weeks to make an michael Please Follow Up With: Colby Schroeder MD Disposition: Home Minutes spent on discharge:: 34 Patient Condition:: Stable Medical Necessity - Tobacco Use Smoking Status: Current some day smoker Tobacco Use: Cigarettes Meaningful Use Info Meaningful Use Diagnoses (Choose all that apply): CHF - CHF EFRAIN/ARB ordered at discharge?: Yes Documented LVEF (%): 30 Code Visit Inpatient E&M: 32879 Disch Hosp
--- NOTE | 2017-12-10 19:11 | DS.PCM_ITS ---
Discharge Date and Diagnosis Date of Admission: 12/06/17 Date of Discharge: 12/09/17 - Primary Discharge Diagnosis #1 acute on chronic systolic congestive heart failure secondary to hypertensive cardiomyopathy #2 hypertensive cardiomyopathy with reduced ejection fraction #3 hypertensive emergency #4 morbid obesity #5 right upper lung nodule-etiology unclear #6 demand ischemia #7 nonocclusive coronary artery disease #8 moderate pulmonary hypertension - Secondary Discharge Diagnosis Chronic Problems Hypertension (Chronic) Hospital Course and Treatment Procedures: 2-D Echocardiogram, Cardiac catheterization Summary of Care Provided: The patient is a 47 year old F who was transferred from [facility] to [facility] as a direct admission after presenting with shortness of breath at [facility] emergency room. Workup in the emergency room at [facility] revealed the patient have uncontrolled hypertension and CHF, patient's cardiac enzymes were also elevated. Patient had been diagnosed previously with hypertension and CHF but had not followed up with a physician as directed. Patient was admitted to PCU, echocardiogram was obtained which showed a severely reduced ejection fraction of 15% along with moderate pulmonary hypertension, patient was treated with IV diuretics and was seen by cardiology. Patient underwent a cardiac catheterization on 12/09/17 which showed nonocclusive coronary artery disease and a cardiomyopathy which was felt to be hypertensive in nature with an EF of 30%. On 12/09/17, patient was seen and examined and felt to be in stable condition for discharge home. Discharge Activity: Return to Normal Activity Weight Bearing Status: Full weight bearing Home Medications: Medications to take at Discharge Amlodipine [Norvasc] 5 mg PO DAILY #30 tab 12/09/17 Aspirin [Adult Aspirin Regimen] 81 mg PO DAILY #30 tablet. 12/09/17 Atorvastatin Calcium [Lipitor] 20 mg PO QHS #30 tab 12/09/17 Carvedilol [Coreg (Beta Tony)] 25 mg PO BID #60 tab 12/09/17 Furosemide [Lasix] 40 mg PO DAILY #30 tab 12/09/17 Lisinopril [Zestril] 40 mg PO DAILY #30 tab 12/09/17 Following Prescrptions Were Given to Patient: Amlodipine [Norvasc] 5 mg PO DAILY #30 tab Aspirin [Adult Aspirin Regimen] 81 mg PO DAILY #30 tablet. Atorvastatin Calcium [Lipitor] 20 mg PO QHS #30 tab Furosemide [Lasix] 40 mg PO DAILY #30 tab Lisinopril [Zestril] 40 mg PO DAILY #30 tab Carvedilol [Coreg (Beta Tony)] 25 mg PO BID #60 tab Primary Care Physician: Care Physician,No Primary [Primary Care Provider] - Please follow up with your Primary Care Physician in: suggest your find primary care physician in the next 3 weeks to make an michael Please Follow Up With: Colby Schroeder MD Disposition: Home Minutes spent on discharge:: 34 Patient Condition:: Stable Medical Necessity - Tobacco Use Smoking Status: Current some day smoker Tobacco Use: Cigarettes Meaningful Use Info Meaningful Use Diagnoses (Choose all that apply): CHF - CHF EFRAIN/ARB ordered at discharge?: Yes Documented LVEF (%): 30 Code Visit Inpatient E&M: 11965 Disch Hosp
[2017-12-12 13:49] LABS: Aldosterone, Serum 5.7 ng/dL (0.0-30.0); Renin, Plasma 0.456 ng/mL/hr (0.167-5.380)
--- NOTE | 2017-12-16 08:15 | CL.D_ITS ---
Patient Name: MARIANN TORRES Study Date: 12/09/2017 Performing: Colby Schroeder MD Ht: 62 inches 157 cm : 1970 Wt: 240.6 lbs 109 kg Age: 47 Gender: female BSA: 2.06 PROCEDURE(S) PERFORMED VC10-GMP/COR/LV CLINICAL PROFILE AND INDICATIONS INDICATIONS: Shortness of breath and heart failure Stress/Imaging Stress/Image Study Performed: No CAD Presentations: No Sxs, no angina. CONCLUSIONS Mild CAD Cardiomyopathy: Dilated RECOMMENDATIONS Medical therapy DESCRIPTION OF PROCEDURE The patient arrived to the procedure lab. The risks and benefits of the procedure as well as a full d escription of our services here and current unavailability of surgical backup were fully explained to the patient and/or their significant other prior to the catheterization. The Timeout was completed, verifying the correct patient and procedure. The patient's procedural site was prepped and draped in the usual fashion. Local anesthetic was given subcutaneously to right radial region with Lidocaine 2% . Using a modified Seldinger technique, arterial access was obtained via the right radial artery, a 6 Fr sheath was inserted. Left Coronary Artery selective angiography was performed in multiple views u sing a 5 Fr. 4.0 [place] catheter. Right Coronary Artery selective angiography was then performed in mu ltiple views using a 5 Fr. 4.0 [place] catheter. Left Ventriculography was performed in SENIOR projection using a 5 Fr. Pig[place] catheter. LV to AO pullback pressures were then recorded.The arterial sheath wa s pulled and a TR Band was applied for hemostasis- 16cc of air CORONARY ANGIOGRAPHY DOMINANCE: Right Dominant LEFT HEART ASSESSMENT Left Ventricular Ejection Fraction: by LV Gram 20 % Abnormal LV wall motion. Global Hypokinesis - Severe Depressed Left Ventricular systolic function LEFT MAIN: Angiographically normal LEFT ANTERIOR DECENDING ARTERY: MID LAD: Mild luminal irregularities less than 30% DIAGONAL 1: Proximal - Mild luminal irregularities less than 30% DIAGONAL 2: Ostial - Mild luminal irregularities less than 30% CIRCUMFLEX ARTERY: Angiographically normal RIGHT CORONARY ARTERY: Angiographically normal COMPLICATIONS No Complications PROCEDURE MEDICATIONS Versed 1 mg IV Oxygen: 2 L/min via nasal cannula Heparin diluted in 23cc Heparinized saline. Patient given 10cc IA of this solution. 12/09/2017 09:07: 56 Verapamil 2.5mg, Ntg 100mcgs, 2000 units of Heparin diluted in 23cc Heparinized saline. Patient give n 10cc IA of this solution. 12/09/2017 09:07:56 SUMMARY OF HEMODYNAMIC DATA Time AIR REST AO 118/79 (96) SA 09:10:05 ECG 09:15:12 LV 134/12, 30 09:16:40 LV 131/19, 28 09:17:01 LV 113/9, 26 09:18:25 LVp 115/10, 25 09:18:28 AOp 123/75 (94) 09:18:33 Signed By oClby Schroeder MD On 12/16/2017 08:15:03 Colby Schroeder MD
== END 2017-12-09 18:54 | disposition home or self-care (01) | DRG 287 ==
PROVIDERS: Internal Medicine Cardiovascular Disease; Admitting Provider Internal Medicine; Visit Provider Internal Medicine
DX: I11.0 Hypertensive heart disease with heart failure (principal); I24.8 Other forms of acute ischemic heart disease; I27.20 Pulmonary hypertension, unspecified; E66.01 Morbid (severe) obesity due to excess calories; Z68.41 Body mass index [BMI] 40.0-44.9, adult; I50.23 Acute on chronic systolic (congestive) heart failure; I25.10 Atherosclerotic heart disease of native coronary artery without angina pectoris; R91.1 Solitary pulmonary nodule; I16.0 Hypertensive urgency; F17.210 Nicotine dependence, cigarettes, uncomplicated; F10.10 Alcohol abuse, uncomplicated
CPT/HCPCS: 36415; 71045; 80048; 81001; 82088; 82962; 83036; 84244; 84443; 84484; 84703; 85025; 85610; 85730; 93005; 93306; 93458; 97802; 99152; J7030; Q9957; Q9967; C1769; C1894; J1940

== ENCOUNTER → 2018-01-08 14:05 | Outpatient (CLI) | payer SELFPAY ==
[2018-01-08 16:23] LABS: Anion Gap 6 (5-15); BUN 10 mg/dL (7-18); Calcium,Total 9.2 mg/dL (8.5-10.1); Chloride 102 mmol/L (98-107); Creatinine, Serum 0.71 mg/dL (0.55-1.02); EST Glomerular Filtration Rate 93 mL/min (>60); Est Glom Filt Rate - Afr Amer 112 mL/min (>60); Glucose 73 mg/dL (74-106); Magnesium 1.7 mg/dL (1.6-2.6); Potassium 3.7 mmol/L (3.5-5.1); Sodium Level 140 mmol/L (136-145)
== END ==
PROVIDERS: Visit Provider Internal Medicine Cardiovascular Disease
DX: I42.0 Dilated cardiomyopathy (principal)
CPT/HCPCS: 36415; 80048; 83735

== ENCOUNTER 2019-05-15 15:57 | Observation (INO) | payer MEDICAID, SELFPAY ==
[2019-05-15] VITALS (9 sets, daily range): BP systolic 153–222; BP diastolic 85–164; PULSE 77–131; RESP 20–30; TEMP 36.5–37.1; O2SAT 97–99; BMI 48.4; BMI 48.5
--- NOTE | 2019-05-15 16:22 | EKG12_ITS ---
Test Reason : ABD PAIN Blood Pressure : / mmHG Vent. Rate : 117 BPM Atrial Rate : 117 BPM P-R Int : 158 ms QRS Dur : 078 ms QT Int : 328 ms P-R-T Axes : 075 -06 079 degrees QTc Int : 457 ms Sinus tachycardia Otherwise normal ECG Confirmed by LATOSHA MONZON, PRABHJOT ([id number]), medical transcription editor JESÚS CREWS ([id number]) on 05/19/2019 11:16:54 AM Referred By: MR Confirmed By:PRABHJOT REINA MD
--- NOTE | 2019-05-15 16:23 | CT_ITS ---
STUDY: CT ABDOMEN AND PELVIS WITHOUT CONTRAST REASON FOR EXAM: Female, 49 years old. Abdominal pain RADIATION DOSAGE (If Supplied By Facility): CTDIvol = ( 14.80 ) mGy, DLP = ( 759.35 ) mGycm TECHNIQUE: Transaxial images were obtained from the dome of the diaphragm to the symphysis pubis without oral contrast, and without intravenous contrast. Sagittal and coronal images were reconstructed. Individualized dose optimization techniques were used for this CT. COMPARISON: None. FINDINGS: There is a small right pleural effusion and compressive atelectasis at the right lung base.. Heart is mildly enlarged. Normal liver. Normal gallbladder and extrahepatic biliary system. Normal spleen. Normal pancreas. Normal bilateral adrenal glands. Tiny nonobstructing right renal calculus without evidence for hydronephrosis or ureteral calculus. There is no renal mass. The left kidney is normal. Normal visualized stomach. Normal small intestine. Diverticular changes of the descending and sigmoid colon without evidence for acute diverticulitis. The appendix is visualized and appears normal. . Mild atherosclerotic changes of the aorta without evidence for aneurysm.. Normal inferior vena cava. Normal retroperitoneum. Uterus is enlarged for stated age and there appears to be a prominent pedunculated fibroid or adnexal mass. Pelvic sonogram recommended Incompletely distended thick-walled prolapsed bladder.. There is nonspecific subcutaneous edema or cellulitis seen throughout the anterior abdominal and pelvic rios Moderate size fat-containing umbilical hernia Normal osseous structures. CT/Abdomen/Pelvis without Cont IMPRESSION: Moderate size fat-containing umbilical hernia without stranding in the fat however there does appear to be diffuse subcutaneous edema or cellulitis within the lower anterior abdominal and pelvic rios Right nephrolithiasis without evidence for renal obstruction Small right pleural effusion and mild compressive atelectasis at the right base. Question small pedunculated fibroid or adnexal lesion. Pelvic sonogram would be helpful for further evaluation if clinically warranted Electronically Signed: Fran Hernandez MD at 17:32 EDT , Service support ,
[2019-05-15] MEDS: 0.9% Normal Saline 1,000 ML 999 ML IV (16:54)
[2019-05-15 17:00] LABS: Absolute Lymphocyte Count 0.99 X10^3/uL (0.83-4.51); Absolute Neutrophil Count 5.8 X10^3/uL (2.0-7.7); Basophil# 0.04 X10^3/uL; Basophil% 0.5 % (0-1); Eosinophil# 0.09 X10^3/uL; Eosinophils% 1.2 % (0-5); Hematocrit 36.7 % (37-47); Hemoglobin 11.6 g/dL (12.0-15.0); Lymphocyte # 0.99 X10^3/ul (4.0); Lymphocyte % 13.3 % (19-41); Mean Corp Hgb Conc 31.6 g/dL (32-36); Mean Corpuscular Hgb 26.7 pg (27.0-32.0); Mean Corpuscular Volume 84.4 fL (81-99); Mean Platelet Vol. 9.5 fl (6.2-12.0); Monocyte# 0.49 X10^3/uL; Monocyte% 6.6 % (0-10); NRBC Flagged by Analyzer 0 % (0-5); Neutrophil # 5.78 X10^3/uL (2.7-7.7); Platelet Count 397 K/mm3 (150-450); RBC Distribution Width CV 14.1 % (11.6-14.6); RBC Distribution Width SD 43.2 fl (35.1-43.9); Red Blood Count 4.35 M/mm3 (4.2-5.4); White Blood Count 7.4 K/mm3 (4.4-11.0)
[2019-05-15 17:20] LABS: International Normalized Ratio 1.2; Partial Thromboplast Time 27.3 Seconds (24.1-36.2); Prothrombin Time (Protime)PT. 15.4 SECONDS (11.7-14.9)
[2019-05-15 17:21] LABS: Lactic Acid 1.4 mmol/L (0.4-2.0)
[2019-05-15 17:39] LABS: ALB/GLOB Ratio 0.9 RATIO (0.9-2.4); AST(SGOT) 29 U/L (15-37); Alanine Aminotransfer ALT/SGPT 19 U/L (13-56); Albumin, Serum 3.1 g/dL (3.2-5.0); Alkaline Phosphatase 80 U/L (45-117); Anion Gap 6 (5-15); BUN 9 mg/dL (7-18); BUN/Creat Ratio 11.3 RATIO (10-20); Calcium,Total 8.2 mg/dL (8.5-10.1); Chloride 106 mmol/L (98-107); EST Glomerular Filtration Rate 81 mL/min (>60); Est Glom Filt Rate - Afr Amer 98 mL/min (>60); Estimated Creatinine Clearance 67.28 ml/min; Globulin 3.6 g/dL (2.2-4.2); Glucose 130 mg/dL (74-106); Potassium 3.6 mmol/L (3.5-5.1); Protein, Total 6.7 g/dL (6.4-8.2); Sodium Level 140 mmol/L (136-145)
[2019-05-15 17:47] LABS: Bacteria 0 SEEN /hpf (None Seen); Mucous, Urine 0 SEEN /hpf (<or=2+); Red Blood Cells-Urine 0 SEEN /hpf (0-5); Squamous Epithelial Cells - UA 0 SEEN /hpf (5-10); White Blood Cells 0 SEEN /hpf (0-5)
[2019-05-15 17:55] LABS: Color, Urine Yellow (Yellow); Glucose, Dipstick Normal (Normal); Ketone-Dipstick Negative (Negative); Leukocyte Esterase-Dipstick Negative /ul (Negative); Nitrite-Dipstick Negative (Negative); Occult Blood-Urine 10 /ul (Negative); Protein-Dipstick 100 mg/dl (Negative); Urine Bilirubin Dipstick Negative (Negative); Urine Clarity Clear (Clear); Urine Urobilinogen 1 mg/dl (Normal)
--- NOTE | 2019-05-15 18:38 | ED.VIS.GEN ---
History of Present Illness Chief Complaint: Abd Pain Narrative: Patient presenting for evaluation secondary to abdominal pain. Patient states that she had a precipitous onset of abdominal pain. She locates it in her lower abdomen, and states that she has skin changes overlying it. Patient states that the pain is worse with palpation has not been associated with nausea or vomiting. She does endorse some chills. Patient states that she feels that she has some generalized edema in her abdomen as well as her legs, and does have an underlying history of congestive heart failure. Review of systems otherwise negative. Past Medical History - Allergies and Home Meds Allergies/Adverse Reactions: Allergies No Known Allergies Allergy (Verified 12/06/17 14:48) Past Medical History: - - HTN, HL, Cardiomyopathy Surgical History: - - Smoking Status: Former smoker - Family History Maternal Family History: Reports: No pertinent history Paternal Family History: Reports: COPD Review of Systems General: Reports: Chills Gastrointestinal: Reports: Abdominal pain Skin: Reports: Rash Physical Exam Vital Signs/Narrative: Vital Signs Temp Pulse Resp BP Pulse Ox 05/15/19 16:55 98.8 F 113 H 23 H 201/125 H 98 05/15/19 16:50 97 05/15/19 15:58 98.1 F 131 H 20 H 222/164 H 99 Inital Vital Signs reviewed: Yes General: Well nourished, Well developed, No Acute Distress Head: Normocephalic, Atraumatic Eyes: Perrl, EOMI ENT: Moist mucous membranes, No rhinorrhea Neck: Supple, Nontender Cardiovascular: Regular rhythm, Tachycardia Respiratory: No distress Abdomen: - - Cellulitis of the lower abdomen with TTP. No crepitus Extremities: Edema Skin: Rash Neurological: Alert, Oriented x3, Cranial nerves II-XII grossly intact, Normal Strength, Normal Sensation Psychological: Normal affect, Normal Mood Diagnostic/Tx/Re-eval - EKG Initial EKG Interpretation: - - Sinus tach 117, isoelectric ST, normal T - Medical Decision Making Patient presented secondary to abdominal pain. Physical exam demonstrated tachycardia with abdominal wall cellulitis. Work-up was obtained. CBC chemistry lactic acid were found to be normal. CT abdomen and pelvis showed ventral hernia and cellulitis. Patient was given fluids but maintained tachycardia. She is septic and needs admitted. She was given unasyn and will be admitted ED Disposition - Plan for ED Patient: Disposition: Acute Care Hospital [facility] Diagnosis: Sepsis, Abdominal wall cellulitis
--- NOTE | 2019-05-15 18:49 | HP.PCM_ITS ---
Problem List (1) Atherosclerosis of [place] coronary artery of [place] heart without angina pectoris Status: Chronic (2) Pulmonary hypertension Status: Chronic Comment: 56 mmhg per echo November 2017 (3) Hypertensive cardiomyopathy Status: Chronic Qualifiers: Heart failure presence: with heart failure Qualified Code(s): I11.0 - Hypertensive heart disease with heart failure (4) Hyperlipidemia Status: Chronic Qualifiers: Hyperlipidemia type: pure hypercholesterolemia Qualified Code(s): E78.00 - Pure hypercholesterolemia, unspecified; E78.0 - Pure hypercholesterolemia (5) Hypertension Status: Chronic Qualifiers: Hypertension type: essential hypertension Qualified Code(s): I10 - Essential (primary) hypertension History of Present Illness Date of Admission: 05/15/19 Chief Complaint: Lower abdominal swelling, redness. The patient is a 49 year old F with past medical history as mentioned above presented to the emergency room because of lower abdominal swelling and redness. Initially, patient thought that she may have a hernia. Her symptoms started yesterday with lower abdominal wall swelling and redness, extending from the lower part of her abdomen down to the suprapubic region and extends on both sides, associated with mild ache and without other associated symptoms. She denies fever or chills. She denied open wounds or drainage. She has history hypertension of which seemed to be uncontrolled and she has been on multiple antihypertensive medications. In the emergency room, her blood pressure was highly elevated. She has history of hypertensive cardiomyopathy with ejection fraction of 15% and she has history of chronic systolic CHF. She has history of hyperlipidemia and she has been on statins. In the emergency room, patient was afebrile, tachycardic, blood pressure was 222/164. She was tachypneic, pulse ox was maintained on room air. Routine blood work was unremarkable. Urinalysis revealed no evidence of acute cystitis. CT scan abdomen and pelvis without contrast revealed moderate sized fat-containing umbilical hernia without stranding, revealed diffuse subcutaneous edema/cellulitis within the lower anterior abdominal wall and pelvic rios, right kidney stone without evidence of obstruction. She is being admitted for lower anterior abdominal wall/suprapubic cellulitis with sepsis. Past Medical History Past Medical History (Chronic Problems): Chronic Problems (Last Updated 05/08/18 @ 08:04 by DANIELA ChoiC) Atherosclerosis of [place] coronary artery of [place] heart without angina pectoris (Chronic) Obesity (Chronic) Nicotine dependence, cigarettes, uncomplicated (Chronic) Nonrheumatic tricuspid (valve) insufficiency (Chronic) Pulmonary hypertension (Chronic) 56 mmhg per echo November 2017 Hypertensive cardiomyopathy (Chronic) Hyperlipidemia (Chronic) History of left heart catheterization (Chronic) 12/09/2017 @ [facility] per Dr. Schroeder Hypertension (Chronic) Medical History: Medical History (Last Updated 05/08/18 @ 08:04 by Jake Al, [employer]) Atherosclerosis of [place] coronary artery of [place] heart without angina pectoris (Chronic) I25.10 Obesity (Chronic) E66.9 Nicotine dependence, cigarettes, uncomplicated (Chronic) F17.210 Nonrheumatic tricuspid (valve) insufficiency (Chronic) I36.1 Pulmonary hypertension (Chronic) I27.20 56 mmhg per echo November 2017 Hypertensive cardiomyopathy (Chronic) I11.9, I43 Hyperlipidemia (Chronic) E78.5 Hypertension (Chronic) I10 Allergies No Known Allergies Allergy (Verified 12/06/17 14:48) Home Medications: Ambulatory Orders Medication Instructions Recorded amlodipine 5 mg tablet 5 mg PO DAILY #30 tab 03/03/18 aspirin 81 mg tablet,delayed 81 mg PO DAILY #30 tablet. 03/03/18 release atorvastatin 20 mg tablet 20 mg PO QHS #30 tab 03/03/18 carvedilol 25 mg tablet 25 mg PO BID #60 tab 03/03/18 furosemide 40 mg tablet 40 mg PO DAILY #30 tab 03/03/18 lisinopril 40 mg tablet 40 mg PO DAILY #30 tab 03/03/18 spironolactone 25 mg tablet 25 mg PO QDAY #90 tab 01/09/19 Surgical History: Surgical History (Last Reviewed 01/08/18 @ 13:36 by Colby Schroeder MD) History of left heart catheterization (Chronic) Z98.890 12/09/2017 @ [facility] per Dr. Schroeder Surgical History: - - X2 Psychiatric History: Anxiety, Depression [employer] History: No pertinent [employer]CR[employer] history Smoking Status: Former smoker - *Family History Maternal History Items: No pertinent history Paternal History Items: COPD Review of Systems Constitutional: Denies: Anorexia, Chills, Fever, Weakness Eyes: Denies: Blurred vision, Double vision, Drainage, Redness HEENT: Denies: Difficulty Hearing, Ear Pain, Eye Pain, Nasal Congestion, Visual Changes Cardiovascular: Denies: Chest Pain, Chest Pressure, Chest Tightness, Heaviness, Light Headedness, Palpitations, Syncope Respiratory: Denies: Cough, Hemoptysis, Pleuritic Pain, Shortness of Breath, Sputum production, Wheezing Gastrointestinal: Denies: Abdominal Pain, Constipation, Diarrhea, Nausea, Vom iting Genitourinary: Denies: Dysuria, Frequency, Hematuria Musculoskeletal: Denies: Arm Pain, Back Pain, Foot Pain Skin: Denies: Dryness, Rash Neurological: Denies: Balance problems, Blurred vision, Double vision, Change in Speech, Slurred speech, Headaches, Incoordination, Numbness Psychiatric: Denies: Anxiety, Depression Endocrine: Denies: Change in Body Habitus, Polydipsia, Polyuria VTE Information - Inpt Only VTE Present on Admission: No VTE Mechan Device Prophylaxis: None VTE Pharm Prophylaxis ordered?: Yes - Physical Exam General: Alert, Oriented x3, Cooperative, No apparent distress HEENT: Atraumatic, PERRLA, EOMI, Normocephalic Oral: Moist Mucosa, No Gingival or Mucosal Lesions/ Ulcerations Neck: Supple, No JVD, Negative Carotid Bruits, Trachea Midline, Thyroid Normal Size and Texture Lungs: Clear to auscultation, Normal air movement, No rhonchi, No wheeze, No rales, Diminished Cardiovascular: Regular rate, Regular Rhythm, Normal S1, Normal S2, PMI Normal, Tachycardic Abdomen: Bowel Sounds Present, Soft, Non Tender, Non-Distended, No Hepato- splenomegaly, Obese Extremities: No clubbing, No cyanosis, Edema - Nonpitting edema. Skin: - - Lower abdominal wall: Swelling and erythema of the lower one third of the abdominal wall extending down to the suprapubic region Lymphatic: No Cervical, Supraclavicular, or Inguinal Adenopathy Neurological: Cranial nerves II-XII grossly intact, Motor Exam 5/5 strength throughout Psych/Mental Status: Normal Affect, Appropriate, Alert and oriented to time, place, person, mood and affect Vital Signs Temp Pulse Resp BP Pulse Ox 98.8 F 113 H 23 H 201/125 H 98 05/15/19 16:55 05/15/19 16:55 05/15/19 16:55 05/15/19 16:55 05/15/19 16:55 Oxygen Delivery Method Room Air Weight: 265 lb Body Mass Index (BMI) 48.4 Laboratory Tests Past 24 Hrs 05/15/19 05/15/19 05/15/19 16:40 16:40 16:40 WBC 7.4 RBC 4.35 Hgb 11.6 L Hct 36.7 L MCV 84.4 MCH 26.7 L MCHC 31.6 L RDW Std Deviation 43.2 RDW Coeff of Eliseo 14.1 Plt Count 397 MPV 9.5 Immature Gran % (Auto) 0.400 Neut % (Auto) 78.0 H Lymph % (Auto) 13.3 L [place] % (Auto) 6.6 Eos % (Auto) 1.2 Baso % (Auto) 0.5 Absolute Neuts (auto) 5.8 Absolute Lymphs (auto) 0.99 Nucleated RBC % 0 PT 15.4 H INR 1.2 APTT 27.3 Sodium 140 Potassium 3.6 Chloride 106 Carbon Dioxide 28.0 Anion Gap 6 BUN 9 Creatinine 0.80 Estim Creat Clear Calc 67.28 Est GFR (MDRD) Af Amer 98 Est GFR (MDRD) Non-Af 81 BUN/Creatinine Ratio 11.3 Glucose 130 H Lactic Acid Calcium 8.2 L Total Bilirubin 0.40 AST 29 ALT 19 Alkaline Phosphatase 80 Total Protein 6.7 Albumin 3.1 L Globulin 3.6 Albumin/Globulin Ratio 0.9 Urine Color Urine Clarity Urine pH Ur Specific [place] Urine Protein Urine Glucose (UA) Urine Ketones Urine Occult Blood Urine Nitrite Urine Bilirubin Urine Urobilinogen Ur Leukocyte Esterase Urine RBC Urine WBC Ur Squamous Epith Cells Urine Bacteria Urine Mucus 05/15/19 05/15/19 16:40 17:35 WBC RBC Hgb Hct MCV MCH MCHC RDW Std Deviation RDW Coeff of [place]iseo Plt Count MPV Immature Gran % (Auto) Neut % (Auto) Lymph % (Auto) [place] % (Auto) Eos % (Auto) Baso % (Auto) Absolute Neuts (auto) Absolute Lymphs (auto) Nucleated RBC % PT INR APTT Sodium Potassium Chloride Carbon Dioxide Anion Gap BUN Creatinine Estim Creat Clear Calc Est GFR (MDRD) Af Amer Est GFR (MDRD) Non-Af BUN/Creatinine Ratio Glucose Lactic Acid 1.4 Calcium Total Bilirubin AST ALT Alkaline Phosphatase Total Protein Albumin Globulin Albumin/Globulin Ratio Urine Color Yellow Urine Clarity Clear Urine pH 7.0 Ur Specific [place] 1.010 Urine Protein 100 H Urine Glucose (UA) Normal Urine Ketones Negative Urine Occult Blood 10 H Urine Nitrite Negative Urine Bilirubin Negative Urine Urobilinogen 1 H Ur Leukocyte Esterase Negative Urine RBC 0 SEEN Urine WBC 0 SEEN Ur Squamous Epith Cells 0 SEEN Urine Bacteria 0 SEEN Urine Mucus 0 SEEN Clinical Impression(s) from Imaging Studies Abdomen/Pelvis CT 05/15/19 16:23 IMPRESSION: Moderate size fat-containing umbilical hernia without stranding in the fat however there does appear to be diffuse subcutaneous edema or cellulitis within the lower anterior abdominal and pelvic rios Right nephrolithiasis without evidence for renal obstruction Small right pleural effusion and mild compressive atelectasis at the right base. Question small pedunculated fibroid or adnexal lesion. Pelvic sonogram would be helpful for further evaluation if clinically warranted Electronically Signed: Fran Hernandez MD at 17:32 EDT , Service support , Assessment/Plan This is a 49 years old female patient presented to the emergency room because of lower abdominal erythema and swelling and she was found to have cellulitis involving the lower abdominal wall as well as suprapubic region with sepsis and she is being admitted for treatment. #1 acute lower anterior abdominal wall/suprapubic and pelvic cellulitis/sepsis: CT scan abdomen reviewed as above. Patient is tachycardic, afebrile, tachypneic. Lactic acid was normal. EKG revealed sinus tachycardia. Plan: Admit to PCU, cardiac monitoring, IV fluids, blood culture, urine culture, start IV Unasyn, MRSA nasal screen, repeat CBC and BMP tomorrow morning, PT OT evaluation and treatment. #2 hypertensive urgency: Patient has history of hypertension which seems to be uncontrolled. Blood pressure was 222/164. Plan: Start IV hydralazine PRN, continue home medications including Norvasc, Coreg, lisinopril and Aldactone when home medication list updated. #3 hypertensive cardiomyopathy/chronic systolic CHF: With ejection fraction 15% on echocardiogram on November,. At this time, no evidence of acute CHF. Patient will need IV fluids for sepsis. Plan to monitor her volume status, continue beta-blockers and EFRAIN inhibitors, hold Lasix for now. #4 hyperlipidemia: Continue statins. #5 pulmonary hypertension: Stable. #6 DVT prophylaxis: Subcu Lovenox. This note was generated with Dragon dictation software. It may contain incorrect words, spelling, and punctuation that were not noted in checking the note before signing. Code Visit Inpatient E&M: 82472 Init Hosp L3
[2019-05-15] MEDS: 0.9% Normal Saline 1,000 ML 100 ML IV (19:45)
[2019-05-15] MEDS: hydrALAZINE 20 MG/ML Vial 10 MG IV (19:49)
[2019-05-15 21:18] LABS: M R Staph aureus DNA By PCR Negative (Negative); Probe Check PASS; Specimen Processing Control PASS
[2019-05-15] MEDS: amLODIPine 5 MG Tablet PO (21:20)
[2019-05-15] MEDS: Furosemide 40 MG Tablet PO (21:20)
[2019-05-15] MEDS: Lisinopril 40 MG Tablet PO (21:21)
[2019-05-15] MEDS: Atorvastatin Calcium 20 MG Tablet PO (21:21)
[2019-05-15] MEDS: Carvedilol 25 MG Tablet PO (21:21)
[2019-05-16 03:20] VITALS: BP 118/82; PULSE 68; PULSE 69; RESP 20; TEMP 36.5; O2SAT 99
[2019-05-16] MEDS: 0.9% Normal Saline 1,000 ML 100 ML IV (05:23)
[2019-05-16] MEDS: Enoxaparin 40 MG/0.4 ML Syringe SC (05:24)
[2019-05-16 06:14] LABS: Absolute Lymphocyte Count 1.17 X10^3/uL (0.83-4.51); Absolute Neutrophil Count 3.7 X10^3/uL (2.0-7.7); Basophil# 0.03 X10^3/uL; Basophil% 0.5 % (0-1); Eosinophil# 0.12 X10^3/uL; Eosinophils% 2.2 % (0-5); Hematocrit 37.8 % (37-47); Hemoglobin 11.7 g/dL (12.0-15.0); Lymphocyte # 1.17 X10^3/ul (4.0); Lymphocyte % 21.4 % (19-41); Mean Platelet Vol. 9.4 fl (6.2-12.0); Monocyte# 0.44 X10^3/uL; NRBC Flagged by Analyzer 0 % (0-5); Neutrophil # 3.69 X10^3/uL (2.7-7.7); Neutrophil % 67.5 % (47-70); Platelet Count 379 K/mm3 (150-450); RBC Distribution Width CV 14.4 % (11.6-14.6); RBC Distribution Width SD 43.8 fl (35.1-43.9); White Blood Count 5.5 K/mm3 (4.4-11.0)
[2019-05-16 06:44] VITALS: PULSE 73
[2019-05-16 06:45] LABS: Anion Gap 8 (5-15); BUN 9 mg/dL (7-18); BUN/Creat Ratio 12.8 RATIO (10-20); Calcium,Total 7.7 mg/dL (8.5-10.1); Chloride 108 mmol/L (98-107); EST Glomerular Filtration Rate 94 mL/min (>60); Est Glom Filt Rate - Afr Amer 114 mL/min (>60); Estimated Creatinine Clearance 73.36 ml/min; Glucose 118 mg/dL (74-106); Potassium 3.5 mmol/L (3.5-5.1); Sodium Level 142 mmol/L (136-145)
[2019-05-16 07:02] VITALS: O2SAT 95
[2019-05-16] MEDS: Aspirin E.C. 81 MG Tablet PO (07:42)
--- NOTE | 2019-05-16 09:15 | DCINST_ITS ---
- Discharge Diagnoses Current Active Problems: Current Active and Chronic Problems (Last Updated 05/15/19 @ 18:49 by Lexy Felder MD) Sepsis (Acute) Abdominal wall cellulitis (Acute) You will use the following diet at home:: Calorie/Carbohydrate Controlled (specify 1200, 1400, etc) - 1600 ADA diet;, Cardiac Discharge Activity: May Not Drive - For 1 week until cleared by PCP Call your doctor if you observe: Fever of 101 or Higher, Change in Color, Inability to urinate, Inability to have a bowel movement, Shortness of breath, Dizziness, Fainting spells, Swelling in the ankles, Chest pain, Increased palpitations (irregular heartbeat) Allergies/Adverse Reactions: Allergies No Known Allergies Allergy (Verified 12/06/17 14:48) Medications to take at Discharge Amlodipine [Norvasc] 5 mg PO DAILY 05/15/19 Aspirin [Adult Aspirin Regimen] 81 mg PO DAILY 05/15/19 Atorvastatin Calcium [Lipitor] 20 mg PO QHS 05/15/19 Carvedilol [Coreg (Beta Tony)] 25 mg PO BID 05/15/19 Furosemide [Lasix] 40 mg PO DAILY 05/15/19 Lisinopril [Zestril] 40 mg PO DAILY 05/15/19 Spironolactone 25 mg PO QDAY 05/15/19 Amoxicillin/Potassium Clav [Augmentin 875-125 Tablet] 1 ea PO BID #12 tab 05/16/19 The following prescriptions were given: Amoxicillin/Potassium Clav [Augmentin 875-125 Tablet] 1 ea PO BID #12 tab Transmission Status: Pending to [facility] Primary Care Physician: Care Physician,No Primary [Primary Care Provider] - Please follow up with your Primary Care Physician in: in 1 week Test Results: Test results from this visit will be discussed in further detail at your follow- up appointment, if applicable. Please Follow Up With: Colby Schroeder MD When: In 3 to 4 weeks
--- NOTE | 2019-05-16 09:18 | DS.PCM_ITS ---
Discharge Date and Diagnosis - Problem List Patient Problems: Active and Suspected Problems (Last Updated 05/15/19 @ 18:49 by Lexy Felder MD) Sepsis (Acute) Abdominal wall cellulitis (Acute) Date of Admission: 05/15/19 Date of Discharge: 05/16/19 - Primary Discharge Diagnosis Active and Suspected Problems (Last Updated 05/15/19 @ 18:49 by Lexy Felder MD) Sepsis (Acute) Abdominal wall cellulitis (Acute) - Secondary Discharge Diagnosis Chronic Problems (Last Updated 05/15/19 @ 18:49 by Lexy Felder MD) Atherosclerosis of [place] coronary artery of [place] heart without angina pectoris (Chronic) Obesity (Chronic) Nicotine dependence, cigarettes, uncomplicated (Chronic) Nonrheumatic tricuspid (valve) insufficiency (Chronic) Pulmonary hypertension (Chronic) 56 mmhg per echo November 2017 Hypertensive cardiomyopathy (Chronic) Hyperlipidemia (Chronic) History of left heart catheterization (Chronic) 12/09/2017 @ [facility] per Dr. Green Hypertension (Chronic) Hospital Course and Treatment Summary of Care Provided: [] This is a 49 years old female patient who was admitted through emergency room for lower abdominal erythema and swelling and she was found to have cellulitis involving the lower abdominal wall as well as suprapubic region with sepsis (tachycardia, tachypnea but no fever). #1 acute lower anterior abdominal wall/suprapubic and pelvic wall panniculitis with sepsis: CT scan abdomen reviewed as above. Patient is tachycardic, afebrile, tachypneic. Lactic acid was normal. EKG revealed sinus tachycardia. Initially, patient was treated with IV fluid in ER but was discontinued because of history of chronic systolic heart failure. On IV antibiotics Unasyn. MRSA nasal screen is negative. CBC does not show leukocytosis. #2 hypertensive urgency: Patient has history of hypertension which seems to be uncontrolled; seems mainly due to noncompliance. Blood pressure was 222/164. Patient blood pressure normalized on home medications at same dosage therefore indicates melena noncompliance. Compliance reinforced. Continue home medications including Norvasc, Coreg, lisinopril and Aldactone. #3 hypertensive cardiomyopathy/chronic systolic CHF: With ejection fraction 15% on echocardiogram on November,. Follow-up with Dr. green. During hospital stay, no evidence of acute CHF. Lasix resumed. #4 hyperlipidemia: Continue statins. #5 pulmonary hypertension: Stable. #6 DVT prophylaxis: Subcu Lovenox. Discharge medication reconciliation done. Discharge follow-up instructions completed. Discharge process discussed with the patient and all questions were answered to patient's satisfaction. Patient is discharged home on Augmentin 875 mg twice daily for 6 more days to complete a total of 7 days. Prescription sent to the pharmacy. Patient was admitted as inpatient but was discharged because of sooner recovery than expected. Total time spent, exact 35 minutes on discharge meds reconciliation, examination, review of imaging and blood test and discussion with the patient on follow-up instructions. Patient Problems: Active and Suspected Problems (Last Updated 05/15/19 @ 18:49 by Lexy Felder MD) Sepsis (Acute) Abdominal wall cellulitis (Acute) Subjective: Seen and examined. Tachycardia has resolved. Heart rate in 60s to 70s per minute. Blood pressure is controlled. Blood pressure 118/82. It was 222/164 in ER. No fever or chills. Pulse ox 95% on room air. - Physical Exam General: Alert, Oriented x3, Cooperative HEENT: Atraumatic, PERRLA, EOMI, Normocephalic Neck: Supple, No JVD, Negative Carotid Bruits Lungs: Clear to auscultation, No rhonchi, No wheeze, No rales, Diminished - Air entry is diminished in bilateral lung bases. Cardiovascular: Regular rate, Normal S1, Normal S2, No murmurs Abdomen: Bowel Sounds Present, Soft, Non Tender, Non-Distended Extremities: No edema, Capillary Refill Less than 3 Seconds Skin: No rashes, No breakdown, Rash Present - Redness and erythema present over lower abdominal wall with Peau'd orange appearance suggestive of cellulitis/panniculitis. Musculoskeletal: No Tenderness to Palpation of Joints or Extremities, Arthritic Changes Neurological: Cranial nerves II-XII grossly intact, Deep Tendon Reflexes 2+/4 and Symmetrical, Neuro grossly intact Psych/Mental Status: Normal Affect, Appropriate Vital Signs Temp Pulse Resp BP Pulse Ox 97.7 F L 73 20 H 118/82 H 95 05/16/19 03:20 05/16/19 06:44 05/16/19 03:20 05/16/19 03:20 05/16/19 07:02 Oxygen Delivery Method Room Air Weight: 263 lb 3.711 oz Body Mass Index (BMI) 48.4 Intake and Output for Last 24 Hours 05/14/19 05/15/19 05/16/19 23:59 23:59 23:59 Intake Total 933.67 / 933.67 Balance 933.67 / 933.67 Laboratory Tests Past 24 Hrs 05/15/19 05/15/19 05/15/19 16:40 16:40 16:40 WBC 7.4 RBC 4.35 Hgb 11.6 L Hct 36.7 L MCV 84.4 MCH 26.7 L MCHC 31.6 L RDW Std Deviation 43.2 RDW Coeff of Eliseo 14.1 Plt Count 397 MPV 9.5 Immature Gran % (Auto) 0.400 Neut % (Auto) 78.0 H Lymph % (Auto) 13.3 L Bee % (Auto) 6.6 Eos % (Auto) 1.2 Baso % (Auto) 0.5 Absolute Neuts (auto) 5.8 Absolute Lymphs (auto) 0.99 Nucleated RBC % 0 PT 15.4 H INR 1.2 APTT 27.3 Sodium 140 Potassium 3.6 Chloride 106 Carbon Dioxide 28.0 Anion Gap 6 BUN 9 Creatinine 0.80 Estim Creat Clear Calc 67.28 Est GFR (MDRD) Af Amer 98 Est GFR (MDRD) Non-Af 81 BUN/Creatinine Ratio 11.3 Glucose 130 H Lactic Acid Calcium 8.2 L Total Bilirubin 0.40 AST 29 ALT 19 Alkaline Phosphatase 80 Total Protein 6.7 Albumin 3.1 L Globulin 3.6 Albumin/Globulin Ratio 0.9 Urine Color Urine Clarity Urine pH Ur Specific Dorothy Urine Protein Urine Glucose (UA) Urine Ketones Urine Occult Blood Urine Nitrite Urine Bilirubin Urine Urobilinogen Ur Leukocyte Esterase Urine RBC Urine WBC Ur Squamous Epith Cells Urine Bacteria Urine Mucus MRSA (PCR) 05/15/19 05/15/19 05/15/19 16:40 17:35 19:55 WBC RBC Hgb Hct MCV MCH MCHC RDW Std Deviation RDW Coeff of Eliseo Plt Count MPV Immature Gran % (Auto) Neut % (Auto) Lymph % (Auto) Bee % (Auto) Eos % (Auto) Baso % (Auto) Absolute Neuts (auto) Absolute Lymphs (auto) Nucleated RBC % PT INR APTT Sodium Potassium Chloride Carbon Dioxide Anion Gap BUN Creatinine Estim Creat Clear Calc Est GFR (MDRD) Af Amer Est GFR (MDRD) Non-Af BUN/Creatinine Ratio Glucose Lactic Acid 1.4 Calcium Total Bilirubin AST ALT Alkaline Phosphatase Total Protein Albumin Globulin Albumin/Globulin Ratio Urine Color Yellow Urine Clarity Clear Urine pH 7.0 Ur Specific Dorothy 1.010 Urine Protein 100 H Urine Glucose (UA) Normal Urine Ketones Negative Urine Occult Blood 10 H Urine Nitrite Negative Urine Bilirubin Negative Urine Urobilinogen 1 H Ur Leukocyte Esterase Negative Urine RBC 0 SEEN Urine WBC 0 SEEN Ur Squamous Epith Cells 0 SEEN Urine Bacteria 0 SEEN Urine Mucus 0 SEEN MRSA (PCR) Negative 05/16/19 05/16/19 05:55 05:55 WBC 5.5 RBC 4.50 Hgb 11.7 L Hct 37.8 MCV 84.0 MCH 26.0 L MCHC 31.0 L RDW Std Deviation 43.8 RDW Coeff of Eliseo 14.4 Plt Count 379 MPV 9.4 Immature Gran % (Auto) 0.400 Neut % (Auto) 67.5 Lymph % (Auto) 21.4 Bee % (Auto) 8.0 Eos % (Auto) 2.2 Baso % (Auto) 0.5 Absolute Neuts (auto) 3.7 Absolute Lymphs (auto) 1.17 Nucleated RBC % 0 PT INR APTT Sodium 142 Potassium 3.5 Chloride 108 H Carbon Dioxide 26.0 Anion Gap 8 BUN 9 Creatinine 0.70 Estim Creat Clear Calc 73.36 Est GFR (MDRD) Af Amer 114 Est GFR (MDRD) Non-Af 94 BUN/Creatinine Ratio 12.8 Glucose 118 H Lactic Acid Calcium 7.7 L Total Bilirubin AST ALT Alkaline Phosphatase Total Protein Albumin Globulin Albumin/Globulin Ratio Urine Color Urine Clarity Urine pH Ur Specific Dorothy Urine Protein Urine Glucose (UA) Urine Ketones Urine Occult Blood Urine Nitrite Urine Bilirubin Urine Urobilinogen Ur Leukocyte Esterase Urine RBC Urine WBC Ur Squamous Epith Cells Urine Bacteria Urine Mucus MRSA (PCR) Discharge Activity: May Not Drive - For 1 week until cleared by PCP Call your doctor if you observe: Fever of 101 or Higher, Change in Color, Inability to urinate, Inability to have a bowel movement, Shortness of breath, Dizziness, Fainting spells, Swelling in the ankles, Chest pain, Increased palpitations (irregular heartbeat) Home Medications: Medications to take at Discharge Amlodipine [Norvasc] 5 mg PO DAILY 05/15/19 Aspirin [Adult Aspirin Regimen] 81 mg PO DAILY 05/15/19 Atorvastatin Calcium [Lipitor] 20 mg PO QHS 05/15/19 Carvedilol [Coreg (Beta Tony)] 25 mg PO BID 05/15/19 Furosemide [Lasix] 40 mg PO DAILY 05/15/19 Lisinopril [Zestril] 40 mg PO DAILY 05/15/19 Spironolactone 25 mg PO QDAY 05/15/19 Amoxicillin/Potassium Clav [Augmentin 875-125 Tablet] 1 ea PO BID #12 tab 05/16/19 Following Prescrptions Were Given to Patient: Amoxicillin/Potassium Clav [Augmentin 875-125 Tablet] 1 ea PO BID #12 tab Transmission Status: Sent to [facility]30 Primary Care Physician: Care Physician,No Primary [Primary Care Provider] - Please follow up with your Primary Care Physician in: in 1 week Please Follow Up With: Colby rGeen MD When: In 3 to 4 weeks Medical Necessity - Tobacco Use Smoking Status: Former smoker Tobacco Use: Cigarettes Meaningful Use Info Meaningful Use Diagnoses (Choose all that apply): None applicable Code Visit Inpatient E&M: 80540 Disch Hosp
[2019-05-16 09:20] VITALS: BP 149/101; PULSE 78; RESP 22; TEMP 36.6; O2SAT 97
[2019-05-16] MEDS: Carvedilol 25 MG Tablet PO (09:33)
[2019-05-16] MEDS: Spironolactone 25 MG Tablet PO (09:33)
[2019-05-16] MEDS: Lisinopril 40 MG Tablet PO (09:33)
[2019-05-16] MEDS: Furosemide 40 MG Tablet PO (09:33)
[2019-05-16] MEDS: amLODIPine 5 MG Tablet PO (09:33)
--- NOTE | 2019-05-19 11:56 | CASEMGMT ---
CE[facility]STER CM Discharge Follow-up Phone Call: SUE: Isaak Strata: 3 Call Date: 05/19/19 Discharge Date: 05/16/19 Time of Call: 1155 Duration: 0 ? Admitting Diagnosis: Abd wall cellulitis Discharge follow-up call attempted. Voicemail received and message left requeting a return call. Regulo Hooks RN
== END 2019-05-16 12:03 | disposition home or self-care (01) ==
LOC: ED 16:35 → PCU 21:23
PROVIDERS: Admitting Provider Hospitalist; Emergency Provider Emergency Medicine; Visit Provider Internal Medicine
DX: A41.9 Sepsis, unspecified organism (principal); L03.311 Cellulitis of abdominal wall; I27.20 Pulmonary hypertension, unspecified; F17.210 Nicotine dependence, cigarettes, uncomplicated; I25.10 Atherosclerotic heart disease of native coronary artery without angina pectoris; E78.5 Hyperlipidemia, unspecified; I11.0 Hypertensive heart disease with heart failure; I43 Cardiomyopathy in diseases classified elsewhere; I16.0 Hypertensive urgency; I50.22 Chronic systolic (congestive) heart failure; Z79.899 Other long term (current) drug therapy; Z79.82 Long term (current) use of aspirin; Z91.19 Patient's noncompliance with other medical treatment and regimen
CPT/HCPCS: 36415; 74176; 80048; 80053; 81001; 83605; 85025; 85610; 85730; 87040; 87086; 87641; 93005; 96361; 96365; 96366; 96372; 96375; 99218; 99285; J7030; P9612; A4216; G0378; J0295

== ENCOUNTER 2019-07-09 17:11 | Emergency (ER) | payer MEDICAID, SELFPAY ==
[2019-05-15 19:52] VITALS: BMI 48.4
[2019-07-09] VITALS (8 sets, daily range): BP systolic 129–190; BP diastolic 96–135; PULSE 70–101; RESP 18–24; TEMP 36.6–36.8; O2SAT 96–98; BMI 47.5
--- NOTE | 2019-07-09 17:15 | CT_ITS ---
We are attempting to reach an attending provider to discuss findings. An addendum with communication details will be sent when the communication is complete. STUDY: CT BRAIN WITHOUT CONTRAST REASON FOR EXAM: Female, 49 years old. Neurodeficit/stroke alert. History of hypertension. RADIATION DOSAGE (If Supplied By Facility): CTDIvol = ( 44.99 ) mGy, DLP = ( 880.47 ) mGycm TECHNIQUE: Transaxial CT imaging of the brain was performed without administration of intravenous contrast material. Individualized dose optimization techniques were used for this CT. COMPARISON: No relevant priors. FINDINGS: Normal soft tissue structures. Normal calvarium. Normal size ventricles and extra-axial spaces for the patient's age. Normal white matter tracts of the cerebral hemispheres. Normal basal ganglia and thalami. Normal brainstem. Normal cerebellum. There is no intracranial hemorrhage. There are no findings of an acute ischemic infarction. Normal visualized paranasal sinuses. CT/Brain/Head without Contrast IMPRESSION: Normal unenhanced CT scan of the brain. Electronically Signed: Arash Valdez MD at 17:33 EDT , Service support ,
--- NOTE | 2019-07-09 17:15 | EKG12_ITS ---
Test Reason : NEURO Blood Pressure : / mmHG Vent. Rate : 070 BPM Atrial Rate : 070 BPM P-R Int : 160 ms QRS Dur : 092 ms QT Int : 448 ms P-R-T Axes : 072 -02 053 degrees QTc Int : 483 ms Normal sinus rhythm Possible Left atrial enlargement Low voltage QRS Prolonged QT Abnormal ECG Confirmed by YAW MONZON, HANNA ([id number]), editor continuity and script ALEX SYLVESTER ([id number]) on 07/13/2019 10:53:14 AM Referred By: KAIT Confirmed By:HANNA TIDWELL MD
--- NOTE | 2019-07-09 17:35 | ED.RN ---
[facility] HAD DIFFICULTY CONNECTING TO TELESTROKE. SPEAKING WITH DR. CARBALLO ON PHONE AT THIS TIME.
--- NOTE | 2019-07-09 17:45 | ED.VISSUMM ---
- ER Visit Summary Date of Service: 07/09/19 Chief Complaint: Stroke symptoms History of Present Illness: The patient is a 49 F presenting with stroke symptoms. This started at 4:45 PM. Patient was talking on the phone and her friend noted sudden onset of difficulty with her speech. She developed left arm and leg weakness. EMS was called. Her blood sugar was 100. She had no recent injury. She is not on anticoagulants. History of hypertension. Physical Examination: Blood pressure 190/135. Patient is afebrile. Alert HEENT exam left facial droop Neck is supple. Lungs are clear and equal bilaterally. Heart is regular rate and rhythm. Abdomen is soft nontender nondistended. Extremities are unremarkable. Skin is warm and dry. NIH 8: 1 for LOC questions, 1 eyes deviated to right, 2 left facial droop, 1 right leg weakness, 2 dysarthria and 1 aphasia. Remainder of exam is unremarkable. Emergency Department Course and Treatment: Patient was taken straight to noncontrast CT. CT head shows no acute process. Discussed with [facility] neurology. Patient will be started on TPA after labetalol and decreasing her blood pressure. She will be started on Cardene drip as needed. Discussed risks and benefits of TPA with patient and her son at bedside and they wish to proceed with TPA. She will be transferred to [facility]. Disposition: Transfer to [facility] Impression: CVA This note was generated with [email or web address] dictation software. It may contain incorrect words, spelling, and punctuation that were not noted in review of the chart prior to signing ED Disposition - Plan for ED Patient: Referrals: Care Physician,No Primary [Primary Care Provider] -
--- NOTE | 2019-07-09 18:06 | ED.RN ---
TRANDATE WAS GIVEN AT 1738. CALLED PHARMACY WHEN GIVEN FOR POTENTIALLY NEEDING CARDENE GTT. AFTER 10 MIN- BP REMAINS ELEVATED. CALLED PHARMACY TO INFORM. ALSO CALLED AGAIN AT 1800 TO INQUIRE ABOUT MEDICATION.
[2019-07-09 18:16] LABS: Anion Gap 10 (5-15); BUN 10 mg/dL (7-18); BUN/Creat Ratio 12.8 RATIO (10-20); Calcium,Total 8.8 mg/dL (8.5-10.1); Chloride 103 mmol/L (98-107); Creatinine, Serum 0.78 mg/dL (0.55-1.02); EST Glomerular Filtration Rate 83 mL/min (>60); Est Glom Filt Rate - Afr Amer 101 mL/min (>60); Glucose 133 mg/dL (74-106); Potassium 3.6 mmol/L (3.5-5.1); Sodium Level 139 mmol/L (136-145)
[2019-07-09 18:25] LABS: International Normalized Ratio 1.2
[2019-07-09 18:25] LABS: Absolute Lymphocyte Count 1.43 X10^3/uL (0.83-4.51); Absolute Neutrophil Count 7.2 X10^3/uL (2.0-7.7); Basophil# 0.04 X10^3/uL; Basophil% 0.4 % (0-1); Eosinophil# 0.12 X10^3/uL; Eosinophils% 1.3 % (0-5); Hematocrit 40.6 % (37-47); Hemoglobin 12.4 g/dL (12.0-15.0); Lymphocyte # 1.43 X10^3/ul (4.0); Lymphocyte % 14.9 % (19-41); Mean Corp Hgb Conc 30.5 g/dL (32-36); Mean Corpuscular Hgb 25.4 pg (27.0-32.0); Mean Corpuscular Volume 83.2 fL (81-99); Mean Platelet Vol. 10.1 fl (6.2-12.0); Monocyte# 0.73 X10^3/uL; Monocyte% 7.6 % (0-10); NRBC Flagged by Analyzer 0 % (0-5); Neutrophil # 7.21 X10^3/uL (2.7-7.7); Neutrophil % 75.4 % (47-70); Platelet Count 420 K/mm3 (150-450); RBC Distribution Width CV 17.9 % (11.6-14.6); RBC Distribution Width SD 52.6 fl (35.1-43.9); Red Blood Count 4.88 M/mm3 (4.2-5.4)
[2019-07-09 18:26] LABS: Partial Thromboplast Time 22.8 Seconds (24.1-36.2)
[2019-07-09 18:33] LABS: White Blood Count 9.6 K/mm3 (4.4-11.0)
--- NOTE | 2019-07-09 18:40 | ED.RN ---
[facility] HAS LEFT WITH PATIENT. REPORT CALLED TO [facility].
== END 2019-07-09 18:40 | disposition short-term general hospital (02) ==
PROVIDERS: Emergency Provider Emergency Medicine
DX: I63.9 Cerebral infarction, unspecified (principal); R29.810 Facial weakness; G83.11 Monoplegia of lower limb affecting right dominant side; R47.1 Dysarthria and anarthria; R29.708 NIHSS score 8; I10 Essential (primary) hypertension; Z79.82 Long term (current) use of aspirin; Z79.899 Other long term (current) drug therapy
CPT/HCPCS: 51702; 70450; 80048; 84484; 85025; 85610; 85730; 93005; 96365; 96368; 96375; 96376; 99285; J2997; J7050; A4216; J3490

== ENCOUNTER 2019-07-28 10:24 | Emergency (ER) | payer MEDICAID, SELFPAY ==
[2019-07-09 17:37] VITALS: BMI 47.5
[2019-07-28 10:26] VITALS: BP 113/53; PULSE 60; RESP 18; TEMP 36.4; O2SAT 99; BMI 41.3
--- NOTE | 2019-07-28 11:01 | RAD_ITS ---
STUDY: X-RAY CHEST REASON FOR EXAM: Female, 49 years old. Sepsis. Altered level of consciousness. TECHNIQUE: Single AP portable view of the chest. COMPARISON: Comparison is made with prior study dated December 09, 2017. FINDINGS: EKG electrodes are seen. An electronic loop recorder device is seen projected over the left lower hemithorax. The lungs are clear and expanded. There is no demonstrated pleural abnormality. There is borderline cardiomegaly. Normal mediastinum and mary. Normal visualized pulmonary arteries. Normal visualized aortic arch and descending thoracic aorta. Normal visualized thoracic spine. Normal visualized ribs, clavicles, and shoulders. There is no demonstrated abnormality of the visualized soft tissue structures of the upper abdomen. RAD/Chest 1 View (Portable) IMPRESSION: Borderline cardiomegaly. Electronically Signed: Ryley Vanessa, at 11:30 EST , Service support ,
--- NOTE | 2019-07-28 11:01 | CT_ITS ---
STUDY: CT BRAIN WITHOUT CONTRAST REASON FOR EXAM: Female, 49 years old. Altered mental status RADIATION DOSAGE (If Supplied By Facility): CTDIvol = ( 44.99 ) mGy, DLP = ( 762.36 ) mGycm TECHNIQUE: Transaxial CT imaging of the brain was performed without administration of intravenous contrast material. Individualized dose optimization techniques were used for this CT. COMPARISON: 07/09/2019 FINDINGS: Normal soft tissue structures. Normal calvarium. Normal size ventricles and extra-axial spaces for the patient's age. Normal white matter tracts of the cerebral hemispheres. Normal basal ganglia and thalami. Normal brainstem. Normal cerebellum. There is no intracranial hemorrhage. There are no findings of an acute ischemic infarction. Normal visualized paranasal sinuses. CT/Brain/Head without Contrast IMPRESSION: No acute intracranial abnormalities. No interval change Electronically Signed: Bartolo Everett MD at 12:45 EST , Service support ,
--- NOTE | 2019-07-28 11:02 | EKG12_ITS ---
Test Reason : ALT LOC Blood Pressure : / mmHG Vent. Rate : 056 BPM Atrial Rate : 056 BPM P-R Int : 188 ms QRS Dur : 084 ms QT Int : 470 ms P-R-T Axes : -07 -13 049 degrees QTc Int : 453 ms Sinus bradycardia Otherwise normal ECG Confirmed by AMARILIS EDMOND ([id number]), loan expeditor JESÚS CREWS ([id number]) on 07/31/2019 11:21:35 AM Referred By: JACKY Confirmed By:AMARILIS EDMOND
--- NOTE | 2019-07-28 11:15 | ED.DCSUM_ITS ---
- ER Visit Summary Date of Service: 07/28/19 Chief Complaint: Altered mental status History of Present Illness: The patient is a 49 F who presents from [place]. She was recently hospitalized in late June for stroke at [facility]. She received TPA. She has left hemiplegia. She was transferred for further care at [place]. She has not been sleeping. She has been having involuntary movements. There is concern for possible drug abuse which was provided by family members. The [facility] physician was concerned for psychiatric causes as well. The patient has no complaints. She is full code. Physical Examination: Afebrile and vital signs are unremarkable. Patient is alert. Oriented to person and place. When I initially asked her name, she said it was Jony Donavan and giggled. She is essentially in constant motion, moving her arms and legs. No rhythmic or repetitive movements. Head and neck atraumatic. Heart regular. Lungs clear. Abdomen soft. Test Results: CT brain, chest x-ray, EKG, labs, urinalysis, drug screen, alcohol pending. Emergency Department Course and Treatment: Patient is status post stroke with abnormal movements and behavior. There is concern for drug use. Work-up as above was performed. She was placed on a monitor. Will reassess. EKG showed sinus rhythm rate of 56. Chest x-ray showed cardiomegaly. CT brain showed nothing acute. CBC unremarkable. Metabolic panel unremarkable. Urinalysis and troponin normal. TSH normal. Alcohol negative. Urine drug screen is positive for amphetamines. I could not identify anything in the patient's regimen that would cross react and cause a positive amphetamine screen. Patient denies amphetamine use. There was concern expressed by the nurse practitioner who sent the patient to the ED that the patient's family may be providing drugs. This was discussed with Dr. Ahn. Patient will be sent back to her facility. Treatment Plan: As above Disposition: Discharge Impression: 1. Altered mental status 2. Amphetamine positive urine This note was generated with [employer] software. It may contain incorrect words, spelling, and punctuation that were not noted in review of the chart prior to signing ED Disposition - Plan for ED Patient: Referrals: Care Physician,No Primary [Primary Care Provider] -
[2019-07-28 11:48] LABS: Absolute Lymphocyte Count 1.42 X10^3/uL (0.83-4.51); Basophil# 0.05 X10^3/uL; Basophil% 0.8 % (0-1); Eosinophil# 0.19 X10^3/uL; Hemoglobin 12.7 g/dL (12.0-15.0); Lymphocyte # 1.42 X10^3/ul (4.0); Lymphocyte % 22.3 % (19-41); Mean Corp Hgb Conc 31.8 g/dL (32-36); Mean Corpuscular Hgb 24.5 pg (27.0-32.0); Mean Corpuscular Volume 77.2 fL (81-99); Mean Platelet Vol. 10.2 fl (6.2-12.0); Monocyte# 0.66 X10^3/uL; Monocyte% 10.4 % (0-10); NRBC Flagged by Analyzer 0 % (0-5); Neutrophil # 4.03 X10^3/uL (2.7-7.7); Neutrophil % 63.3 % (47-70); Platelet Count 326 K/mm3 (150-450); RBC Distribution Width CV 17.4 % (11.6-14.6); RBC Distribution Width SD 48.7 fl (35.1-43.9); Red Blood Count 5.18 M/mm3 (4.2-5.4); White Blood Count 6.4 K/mm3 (4.4-11.0)
[2019-07-28 11:53] LABS: Bacteria 0 SEEN /hpf (None Seen); Mucous, Urine 0 SEEN /hpf (<or=2+); Red Blood Cells-Urine 0 SEEN /hpf (0-5)
[2019-07-28 11:56] LABS: Color, Urine Yellow (Yellow); Glucose, Dipstick Normal (Normal); Ketone-Dipstick Negative (Negative); Leukocyte Esterase-Dipstick Negative /ul (Negative); Nitrite-Dipstick Negative (Negative); Occult Blood-Urine Negative /ul (Negative); Protein-Dipstick Negative (Negative); Urine Bilirubin Dipstick Negative (Negative); Urine Clarity Clear (Clear); Urine Urobilinogen Normal (Normal)
[2019-07-28 12:03] LABS: AST(SGOT) 31 U/L (15-37); Alanine Aminotransfer ALT/SGPT 20 U/L (13-56); Albumin, Serum 3.7 g/dL (3.2-5.0); Alkaline Phosphatase 85 U/L (45-117); Anion Gap 9 (5-15); BUN 40 mg/dL (7-18); Chloride 100 mmol/L (98-107); Creatinine, Serum 1.74 mg/dL (0.55-1.02); EST Glomerular Filtration Rate 33 mL/min (>60); Est Glom Filt Rate - Afr Amer 40 mL/min (>60); Estimated Creatinine Clearance 30.93 ml/min; Globulin 3.7 g/dL (2.2-4.2); Glucose 123 mg/dL (74-106); Potassium 3.4 mmol/L (3.5-5.1); Protein, Total 7.4 g/dL (6.4-8.2); Sodium Level 134 mmol/L (136-145); Thyroid Stim Hormone (TSH) 2.31 uIU/mL (0.358-3.74)
[2019-07-28 12:04] LABS: Hyaline Cast 0-5 SEEN /lpf (0-5); Squamous Epithelial Cells - UA 0-5 SEEN /hpf (5-10); White Blood Cells 0-5 SEEN /hpf (0-5)
[2019-07-28 12:11] LABS: Amphetamine Urine VISTA POSITIVE (<1000 ng/mL); Barbiturate Urine VISTA NEGATIVE (< 200 ng/mL); Benzodiazepine Urine VISTA NEGATIVE (< 200 ng/mL); Cocaine Urine VISTA NEGATIVE (< 300 ng/mL); Ecstacy Urine VISTA NEGATIVE (< 500 ng/mL); Methadone Urine VISTA NEGATIVE (< 300 ng/mL); PCP Urine VISTA NEGATIVE (< 25 ng/mL); THC Urine VISTA NEGATIVE (< 50 ng/mL); Vista UDS pH Range 5
[2019-07-28 13:00] VITALS: BP 105/70; PULSE 62; RESP 18; O2SAT 96
--- NOTE | 2019-07-28 13:10 | ED.DEP ---
ED Disposition - Plan for ED Patient: Instructions: Altered Loc, Amphetamine Screen Urine Referrals: Jon Ahn MD [STAFF PHYSICIAN] -
--- NOTE | 2019-07-28 13:30 | ED.RN ---
Report called to [facility]. Spoke with the nurse Di, updated her with patients tests and dx. We will set up transport for patient to get back to [place]. Di denies questions.
== END 2019-07-28 14:39 | disposition skilled nursing facility (03) ==
PROVIDERS: Emergency Provider Emergency Medicine
DX: R41.82 Altered mental status, unspecified (principal); F15.90 Other stimulant use, unspecified, uncomplicated; E11.9 Type 2 diabetes mellitus without complications; I10 Essential (primary) hypertension; E78.00 Pure hypercholesterolemia, unspecified; I27.20 Pulmonary hypertension, unspecified; G81.94 Hemiplegia, unspecified affecting left nondominant side; Z86.73 Personal history of transient ischemic attack (TIA), and cerebral infarction without residual deficits; Z86.19 Personal history of other infectious and parasitic diseases; Z79.82 Long term (current) use of aspirin; Z79.899 Other long term (current) drug therapy; Z87.891 Personal history of nicotine dependence
CPT/HCPCS: 70450; 71045; 80053; 80307; 80320; 81001; 84443; 84484; 85025; 93005; 96360; 99285; P9612; G0480

== ENCOUNTER 2019-07-29 11:34 | Emergency (ER) | payer MEDICAID, SELFPAY ==
[2019-07-28 10:26] VITALS: BMI 41.3
[2019-07-29 11:35] VITALS: BP 101/82; PULSE 66; RESP 18; TEMP 36.3; O2SAT 98; BMI 42.6
--- NOTE | 2019-07-29 11:58 | ED.DCSUM_ITS ---
History of Present Illness Chief Complaint: Mental Health Detail of Chief Complaint: twitching Informant: Patient, SNF Onset: Days - several; exact info unknown Narrative: Patient sent to the ER again, for similar reasons she was sent yesterday. She is twitching, lip smacking, acting goofy. She is not sleeping well. The patient states that they moved her to her room and they are not feeding me and I am hungry and thirsty. She tells me her name and where she is in the month and date okay. Apparently nursing at the correction facility is concerned that family is bringing drugs in. I asked the patient about this she states no way. She denies using any illicit substances. Apparently some powder was found in her purse, the police were called, and apparently took it and did not make an arrest. It is unknown if they are doing any testing on it. She tested positive for amphetamines yesterday and she is on no medications right now that would cross-react with this test that me or her PCP or aware of. The rest of the testing was negative. I spoke with 1 of the nurses who was working yesterday and saw her, he states that this is exactly how she was yesterday, since myself I did not see her yesterday. I spoke with Dr. Ahn, physician in charge at the group home, who states now the nurses do not want her back, he has not seen her like this but agrees that she is on no medications that should cross-react with the amphetamine test. He states we are also in a bind since we cannot have any patients bringing in outside illicit drugs/substances, and if that is the case she would not be able to go back there. At times she laughs and it is inappropriate. She is able to follow commands. The patient denies having any hallucinations although this is apparently suspected by nursing staff. She made a comment at the group home prior to transfer today, something to the effect of ...because I will not be around anymore. The patient denies being suicidal or having any thoughts of that, but the nursing staff said because of this statement, she was threatening suicide. - Past Medical History (1) Atherosclerosis of [place] coronary artery of [place] heart without angina pectoris Status: Chronic (2) Hyperlipidemia Status: Chronic (3) Hypertension Status: Chronic (4) Hypertensive cardiomyopathy Status: Chronic (5) Nicotine dependence, cigarettes, uncomplicated Status: Chronic (6) Nonrheumatic tricuspid (valve) insufficiency Status: Chronic (7) Obesity Status: Chronic (8) Pulmonary hypertension Status: Chronic Comment: 56 mmhg per echo November 2017 Past Medical History - Allergies and Home Meds Allergies/Adverse Reactions: Allergies orange juice Allergy (Verified 07/29/19 11:39) Anaphylaxis Primary Care Physician: Care Physician,No Primary [Primary Care Provider] - Surgical History: - - X2 Lives: [facility] Smoking Status: Never smoker - Family History Maternal Family History: Reports: No pertinent history Paternal Family History: Reports: COPD Review of Systems General: Denies: Chills, Fever, Sweats Eyes: Denies: Visual changes - bilaterally, Diplopia ENT: Denies: Rhinorrhea, Sore throat Cardiovascular: Denies: Chest pain, Palpitations Respiratory: Denies: Dyspnea, Cough, Dyspnea on exertion Gastrointestinal: Denies: Abdominal pain, Nausea, Vomiting, Diarrhea, Melena, Hematochezia Genitourinary: Denies: Dysuria, Hematuria, Frequency Musculoskeletal: Denies: Back pain, Swelling, Extremity Pain Skin: Denies: Rash, Wounds Neurological: Reports: - - twitching, uncontrollable movements. Denies: Headache, Weakness, Numbness Psych: Reports: - - denies visual or auditory hallucinations. Denies: Suicidal thoughts, Suicidal ideations Physical Exam Vital Signs/Narrative: Vital Signs Temp Pulse Resp BP Pulse Ox 07/29/19 11:35 97.4 F L 66 18 101/82 H 98 Inital Vital Signs reviewed: Yes General: Well nourished, Well developed, Obese, No Acute Distress Head: Normocephalic, Atraumatic Eyes: Perrl, EOMI ENT: Moist mucous membranes, No rhinorrhea Neck: Supple, Nontender Cardiovascular: Regular rate, Regular rhythm, No murmurs Respiratory: No distress, CTA bilaterally, Chest nontender Abdomen: Soft, Nontender, Nondistended, Normal bowel sounds Back: Nontender, Normal Inspection Extremities: Nontender, No edema Skin: Normal color, No rash Neurological: Alert, Oriented x3, Cranial nerves II-XII grossly intact, Normal Strength, Normal Sensation, - - She is moving her arms and following commands, but has excessive hyperactive movements, some of which are difficult for her to control, she is apologetic; lots of lip smacking and tongue movements, there is no chorea but it is mixed with turning her head back and forth in her eyes without nystagmus, more consistent with dystonia. Nml FTN and HTS bilat. Psychological: Normal affect, Normal Mood Diagnostic/Tx/Re-eval - Medical Decision Making Patient said she was there for a stroke but there is no record of her having a stroke in our medical records. chemical tank worker discussed with her to call her daughter, and apparently she admitted to bringing methamphetamine in to the patient. There are positive amphetamine screen and lack of any medications that should be cross-reacting with this test, her symptoms are likely due to methamphetamine use. We will give her a dose of Ativan. Social work discussed with her and agrees she is not suicidal. She has no medical reason to be admitted to the hospital at this time. I suspect these unusual reactions or side effects from methamphetamine abuse. She will be discharged back to group home with a prescription for prn Ativan. ED Disposition - Plan for ED Patient: Disposition: Home or Assisted Living Diagnosis: Methamphetamine abuse Instructions: Understanding Methamphetamine Abuse and Addiction Prescriptions: Lorazepam [Ativan] 1 mg PO TID PRN #15 tab PRN Reason: Agitation Prescription Printed Referrals: Care Physician,No Primary [Primary Care Provider] - [facility] [STAFF PHYSICIAN] - Jon Ahn MD [STAFF PHYSICIAN] - 1 Day
[2019-07-29 14:20] VITALS: RESP 18
[2019-07-29] MEDS: LORazepam 2 MG/ML Syringe 1 MG IM (14:26)
--- NOTE | 2019-07-29 14:30 | CM.ED ---
SOCIAL WORK RECEIVED CALL FROM PATIENT'S DAUGHTER, FABI MADRIGAL ([phone]). FABI REPORTS WAS TOLD TO CALL IN TO THIS WORKER TO INFORM PATIENT IS SUICIDAL. DAUGHTER DENIES ANY KNOWLEDGE OF PAST SUICIDAL IDEATION OR ATTEMPTS FOR PATIENT. DAUGHTER ALSO REPORTS PATIENT WITH HISTORY OF ALCOHOL AND METH USE. DAUGHTER REPORTS PATIENT IS SNEAKING METH INTO THE RETIREMENT. UPDATED STAFF AND DR. GARCIA ON THE ABOVE. FACE TO FACE WITH PATIENT IN ROOM. INTRODUCED THIS WORKER'S ROLE AND REASON FOR REFERRAL. PATIENT REPORTS CURRENTLY RESIDES AT [facility] AND WAS ADMITTED THERE D/T STROKE. PATIENT DOES ADMIT TO HISTORY OF SUBSTANCE ABUSE AND DROPPED EYE CONTACT WITH THIS WORKER WHEN ASKED ABOUT USE OF AMPHETAMINES. SUICIDE RISK ASSESSMENT COMPLETED WITH PATIENT. PATIENT DENIES ANY SUICIDAL IDEATION, PLAN OR INTENT. PATIENT DENIES ANY HOMICIDAL IDEATION. PATIENT LAUGHED WHEN ASKED SUICIDE RISK QUESTIONS STATING WHY WOULD I DO THAT? COLLABORATION WITH DR. GARCIA. INFORMED PATIENT DENIES ANY SUICIDAL OR HOMICIDAL IDEATION. PLAN FOR PATIENT TO RETURN TO [facility]. Matias BAILEY, WEIGH TANK OPERATOR, SPACE AND STORAGE CLERK.
--- NOTE | 2019-07-29 14:47 | NURSING ---
CALLED [facility] FOR TRANSPORT. ETA IS 1.5 HRS
[2019-07-29 14:50] VITALS: BP 133/103; PULSE 68; RESP 18; O2SAT 96
== END 2019-07-29 15:27 | disposition home or self-care (01) ==
PROVIDERS: Emergency Provider Emergency Medicine
DX: F15.10 Other stimulant abuse, uncomplicated (principal); I25.10 Atherosclerotic heart disease of native coronary artery without angina pectoris; E78.5 Hyperlipidemia, unspecified; I11.9 Hypertensive heart disease without heart failure; I43 Cardiomyopathy in diseases classified elsewhere; I36.1 Nonrheumatic tricuspid (valve) insufficiency; E66.9 Obesity, unspecified; I27.20 Pulmonary hypertension, unspecified; Z79.899 Other long term (current) drug therapy; F17.210 Nicotine dependence, cigarettes, uncomplicated
CPT/HCPCS: 96372; 99285